=== PATIENT | male | born 1995 | race Caucasian/White ===

== ENCOUNTER 2018-06-22 20:36 | Emergency (ER) | payer OTHER, SELFPAY ==
[2018-06-22 20:37] VITALS: BP 152/80; PULSE 76; RESP 18; TEMP 37; O2SAT 98; BMI 28.3
[2018-06-22] MEDS: Clindamycin HCl 150 MG Capsule 300 MG PO (21:29)
--- NOTE | 2018-06-22 22:08 | ED.DCSUM_ITS ---
- ER Visit Summary Date of Service: 06/22/18 Chief Complaint: Abscess History of Present Illness: The patient is a 22 M who noted a swollen area along the gluteal cleft a few days ago. The area has become increasingly swollen and painful. There is been no spontaneous drainage. He denies fever or chills. Physical Examination: Vital signs significant for blood pressure 152/80, otherwise unremarkable. Patient standing at bedside. He is in no acute distress. Heart is regular rate and rhythm. Lungs sounds are clear. Skin examination reveals a pilonidal cyst with fluctuance along the superior gluteal cleft. Test Results: [] Emergency Department Course and Treatment: Patient was consented for I&D. He is given a dose of clindamycin. 1 cc 1% lidocaine is infused locally. An incision is made with a #11 blade. There is return of pus. Loculations are broken up with curved hemostats. Wound is cleansed and dressed. Patient will be given a prescription for clindamycin. He wishes to only take ibuprofen or Aleve at home for pain. He is referred to surgery for follow-up if it returns. Treatment Plan: [] Disposition: Discharge Impression: Pilonidal cyst status post I&D This note was generated with [employer] dictation software. It may contain incorrect words, spelling, and punctuation that were not noted in review of the chart prior to signing ED Disposition - Plan for ED Patient: Disposition: Home or Assisted Living Instructions: ED Cyst Pilonidal Infected IandD Prescriptions: Clindamycin [Cleocin] 300 mg PO 4X/DAY #80 capsule Referrals: Jeremy Joshi MD [STAFF PHYSICIAN] - As Needed
[2018-06-22 22:10] VITALS: RESP 18
== END 2018-06-22 22:15 | disposition home or self-care (01) ==
PROVIDERS: Emergency Provider Emergency Medicine
DX: L05.01 Pilonidal cyst with abscess (principal)
CPT/HCPCS: 10080; 99283

== ENCOUNTER 2019-10-05 09:34 | Emergency (ER) | payer OTHER, SELFPAY ==
[2019-10-05 09:35] VITALS: BP 176/89; PULSE 87; RESP 17; TEMP 36.3; O2SAT 99; BMI 30.8
--- NOTE | 2019-10-05 09:52 | CT_ITS ---
STUDY: CT BRAIN WITHOUT CONTRAST REASON FOR EXAM: Male, 23 years old. HIT HEAD ON TABLE X2 DAYS AGO RADIATION DOSAGE (If Supplied By Facility): CTDIvol = ( 44.99 ) mGy, DLP = ( 779.24 ) mGycm TECHNIQUE: Transaxial CT imaging of the brain was performed without administration of intravenous contrast material. Individualized dose optimization techniques were used for this CT. COMPARISON: No relevant priors. FINDINGS: Normal soft tissue structures. Normal calvarium. Normal size ventricles and extra-axial spaces for the patient''s age. Normal white matter tracts of the cerebral hemispheres. Normal basal ganglia and thalami. Normal brainstem. Normal cerebellum. There is no intracranial hemorrhage. There are no findings of an acute ischemic infarction. Normal visualized paranasal sinuses. CT/Brain/Head without Contrast IMPRESSION: Normal unenhanced CT scan of the brain. Electronically Signed: Luis Antonio Cox, at 10:19 EDT , Service support ,
--- NOTE | 2019-10-05 10:00 | ED.VIS.GEN ---
History of Present Illness Chief Complaint: Head Injury Narrative: Patient presenting for evaluation after head injury. Patient reports that on Saturday night he was drinking with some friends and was roughhousing. Patient reports that while he was roughhousing he struck his left rastafarian against a table. He is unsure if he lost consciousness, but states that after he got up from the fall he basically blacked out for the rest of the night and did not remember anything else that happened. Patient states that since then he plus or minus has been having some blurred vision. He reports that on Saturday he was using Afrin to clear his nose, and felt as if he had clear drainage and after looking things up on the Internet was concerned that he had CSF rhinorrhea. Patient denies any confusion nausea or vomiting. No personal or family history of bleeding dyscrasias. Past Medical History - Allergies and Home Meds Allergies/Adverse Reactions: Allergies amoxicillin trihydrate [From Augmentin] Allergy (Verified 10/05/19 09:35) Rash potassium clavulanate [From Augmentin] Allergy (Verified 10/05/19 09:35) Rash Primary Care Physician: Care Physician,No Primary [NON-STAFF] - Prior records reviewed: Yes Past Medical History: None Lives: With Family Smoking Status: Never smoker Alcohol: Occasional Review of Systems All systems negative except as indicated General: Denies: Chills, Fever, Sweats Eyes: Reports: Visual changes - bilaterally. Denies: Diplopia ENT: Denies: Rhinorrhea, Sore throat Cardiovascular: Denies: Chest pain, Palpitations Respiratory: Denies: Dyspnea, Cough, Dyspnea on exertion Gastrointestinal: Denies: Abdominal pain, Nausea, Vomiting, Diarrhea, Melena, Hematochezia Genitourinary: Denies: Dysuria, Hematuria, Frequency Musculoskeletal: Denies: Back pain, Extremity Pain Skin: Denies: Rash, Wounds Neurological: Reports: Headache Physical Exam Vital Signs/Narrative: Vital Signs Temp Pulse Resp BP Pulse Ox 10/05/19 09:35 97.3 F L 87 17 176/89 H 99 Inital Vital Signs reviewed: Yes General: Well nourished, Well developed, No Acute Distress Head: Normocephalic, Atraumatic Eyes: Perrl, EOMI ENT: Moist mucous membranes, No rhinorrhea, TM's clear - No evidence of hemotympanum, - - No evidence of gomez sign or raccoon eyes. No evidence of rhinorrhea. Neck: Supple, Nontender Cardiovascular: Regular rate, Regular rhythm, No murmurs Respiratory: No distress, CTA bilaterally, Chest nontender Abdomen: Soft, Nontender, Nondistended, Normal bowel sounds Back: Nontender, Normal Inspection Extremities: Nontender, No edema Skin: Normal color, No rash Neurological: Alert, Oriented x3, Cranial nerves II-XII grossly intact, Normal Strength, Normal Sensation, Normal Gait. Negative for: Confused, Disoriented Psychological: Normal affect, Normal Mood Diagnostic/Tx/Re-eval Clinical Impression(s) from Imaging Studies Brain CT 10/05/19 09:52 IMPRESSION: Normal unenhanced CT scan of the brain. Electronically Signed: Luis Antonio Cox, at 10:19 EDT , Service support , - Medical Decision Making Patient presented secondary to a head injury. Patient had some symptoms of potential loss of consciousness and plus or minus CSF rhinorrhea, so CT imaging was performed. This was found to be negative per radiology. Patient likely has an element of a concussion, he was given return to activity instructions and was discharged in stable condition. I feel that it is unlikely that the patient has a basilar skull fracture causing CSF rhinorrhea. ED Disposition - Plan for ED Patient: Disposition: Home or Assisted Living Diagnosis: Concussion Instructions: ED Concussion Referrals: Care Physician,No Primary [NON-STAFF] - Additional Instructions: Follow-up with your primary care physician as needed
[2019-10-05 11:04] VITALS: PULSE 84; RESP 17; O2SAT 99
== END 2019-10-05 11:05 | disposition home or self-care (01) ==
PROVIDERS: Emergency Provider Emergency Medicine; PCP Internal Medicine
DX: S06.0X9A Concussion with loss of consciousness of unspecified duration, initial encounter (principal); W22.8XXA Striking against or struck by other objects, initial encounter; Y93.72 Activity, wrestling; Y92.9 Unspecified place or not applicable
CPT/HCPCS: 70450; 99282

== ENCOUNTER 2021-05-23 13:56 | Outpatient (CLI) | payer OTHER, SELFPAY ==
[2021-05-23 15:05] LABS: Absolute Lymphocyte Count 1.74 X10^3/uL (0.83-4.51); Absolute Neutrophil Count 3.9 X10^3/uL (2.0-7.7); Basophil# 0.02 X10^3/uL; Basophil% 0.3 % (0-1); Eosinophil# 0.05 X10^3/uL; Eosinophils% 0.8 % (0-5); Hemoglobin 14.8 g/dL (13.0-16.5); Lymphocyte # 1.74 X10^3/ul (0.83-4.51); Lymphocyte % 28.2 % (19-41); Mean Corp Hgb Conc 34.4 g/dL (32-36); Mean Corpuscular Hgb 30.3 pg (27.0-32.0); Mean Corpuscular Volume 87.9 fL (80-94); Mean Platelet Vol. 9.2 fl (6.2-12.0); Monocyte% 8.1 % (0-10); NRBC Flagged by Analyzer 0 % (0-5); Neutrophil # 3.85 X10^3/uL (2.7-7.7); Neutrophil % 62.4 % (47-70); Platelet Count 252 K/mm3 (150-450); RBC Distribution Width CV 12.1 % (11.6-14.6); Red Blood Count 4.89 M/mm3 (4.6-6.2); White Blood Count 6.2 K/mm3 (4.4-11.0)
[2021-05-23 15:19] LABS: ALB/GLOB Ratio 1.2 RATIO (0.9-2.4); AST(SGOT) 15 U/L (15-37); Alanine Aminotransfer ALT/SGPT 25 U/L (16-61); Albumin, Serum 3.8 g/dL (3.2-5.0); Alkaline Phosphatase 58 U/L (45-117); Anion Gap 6 (5-15); BUN 15 mg/dL (7-18); BUN/Creat Ratio 16.8 RATIO (10-20); Chloride 106 mmol/L (98-107); Cholesterol 125 mg/dL (200); Creatinine, Serum 0.89 mg/dL (0.70-1.30); EST Glomerular Filtration Rate 112 mL/min (>60); Est Glom Filt Rate - Afr Amer 135 mL/min (>60); Globulin 3.3 g/dL (2.2-4.2); Glucose 90 mg/dL (74-106); High Density Lipoprotein 58 mg/dL; Potassium 3.8 mmol/L (3.5-5.1); Protein, Total 7.1 g/dL (6.4-8.2); Sodium Level 143 mmol/L (136-145); Triglycerides 68 mg/dL; Very Low Density Lipoprotein 14 mg/dL (5-40)
== END 2021-05-23 23:59 | disposition short-term general hospital (02) ==
LOC: BIMLAB 13:58
PROVIDERS: PCP Internal Medicine; Referring Provider Internal Medicine; Visit Provider Internal Medicine
DX: I10 Essential (primary) hypertension (principal)
CPT/HCPCS: 36415; 80053; 80061; 85025

== ENCOUNTER 2022-06-26 07:26 | Emergency (ER) | payer OTHER, SELFPAY ==
[2022-06-26 07:28] VITALS: BP 124/78; PULSE 78; RESP 16; TEMP 36.6; O2SAT 98
--- NOTE | 2022-06-26 07:41 | RAD_ITS ---
STUDY: X-RAY - CERVICAL SPINE REASON FOR EXAM: Male, 26 years old. 2 month history of right-sided neck pain. TECHNIQUE: 3 view(s) of the cervical spine were obtained. COMPARISON: None FINDINGS: Normal anterior atlantoaxial articulation. Normal odontoid process. There is straightening of the normal cervical lordosis. Normal vertebral bodies and endplates. Normal disc space heights. Normal visualized intervertebral neuroforamina. The soft tissue structures are unremarkable. RAD/Cerv Spine 2 or 3 Views IMPRESSION: Straightening of the normal cervical lordosis. Electronically Signed: Luis Antonio Cox MD at 8:45 EST ,
--- NOTE | 2022-06-26 07:41 | RAD_ITS ---
STUDY: X-RAY CHEST REASON FOR EXAM: Male, 26 years old. 2 month history of right shoulder pain. Work injury. TECHNIQUE: PA and lateral views of the chest. COMPARISON: None. FINDINGS: The lungs are clear and expanded. There is no demonstrated pleural abnormality. Normal size heart. Normal mediastinum and willy. Normal visualized pulmonary arteries. Normal visualized aortic arch and descending thoracic aorta. There is a dextroscoliosis of the thoracic spine. Normal visualized ribs, clavicles, and shoulders. There is no demonstrated abnormality of the visualized soft tissue structures of the upper abdomen. RAD/Chest PA and Lateral IMPRESSION: Dextroscoliosis. Electronically Signed: Luis Antonio Cox MD at 8:44 EST ,
--- NOTE | 2022-06-26 07:43 | EDS_ITS ---
HPI History of Present Illness Chief Complaint: Other, Pain/Inj Detail of Chief Complaint: Right upper back pain Informant: patient Narrative Narrative: Patient presents secondary to right upper back pain. 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 He had tightness in that area with some radiation towards his neck. Over the last 2 months with anti- inflammatories symptoms seem to improve. He was at the gym yesterday. When punching a punching bag he felt that same popping sensation. This morning he woke up and has neck stiffness and difficulty moving. Pain does not radiate down his arm. He has no paresthesias. [facility] Medical History Dermatitis Groin swelling Hypertension Migraines Pain in toe of left foot Home Medications hydrocortisone 2.5 % topical cream 1 applic topical BID PRN rash #30 grams 05/23/21 [Rx Last Taken Unknown] miconazole nitrate 2 % topical spray powder 1 spray topical BID #133 grams 05/23/21 [Rx Last Taken Unknown] cyclobenzaprine 10 mg tablet 10 mg PO TID PRN Muscle Spasm #20 TABLETS 06/26/22 [Rx Last Taken Unknown] naproxen 500 mg tablet (Naprosyn) 500 mg PO BID PRN pain #20 tabs 06/26/22 [Rx Last Taken Unknown] Allergy/AdvReac Type Severity Reaction Status Date / Time amoxicillin trihydrate Allergy Rash Verified 06/26/22 07:27 [From Augmentin] potassium clavulanate Allergy Rash Verified 06/26/22 07:27 [From Augmentin] Family History Grandfather Myocardial infarction, Onset Age: 40 Diabetes Heart disease Surgical History no surgical history Social History Smoking Status: Current every day smoker tobacco type: e-cigarettes Electronic Cigarette Use: with nicotine alcohol intake: never substance use type: does not use what type of physical activity do you participate in: running and weight training frequency: daily ROS ROS ED Constitutional Constitutional ED: Denies chills or fever(s) Eyes Eyes: Denies change in vision or discharge from eye(s) ENT ENT ED: Denies discharge from eye(s), rhinorrhea or sore throat Cardiovascular Cardiovascular: Denies chest pain or palpitations Respiratory/Chest Respiratory/Chest: Denies cough or dyspnea Gastrointestinal Gastrointestinal: Denies abdominal pain, nausea or vomiting Genitourinary Genitourinary ED: Denies difficulty urinating or dysuria Musculoskeletal Musculoskeletal: Reports back pain, extremity pain and neck pain Integumentary Denies Abrasions or rash Neurologic Neurologic: Denies headache(s) or weakness Allergic/Immunologic Allergic/Immunologic ED: Denies lip swelling or urticaria EXAM Physical Exam Const Vital Signs: 06/26/22 07:28 Temperature 97.8 F Temperature Source Temporal Pulse Rate 78 Respiratory Rate 16 Blood Pressure 124/78 H Blood Pressure Mean 93 Pulse Ox 98 Oxygen Delivery Method Room Air Positive well nourished and well developed General Appearance ED: well developed HEENT Reports normocephalic and head/scalp atraumatic Eyes PERRL and EOMs intact bilaterally Neck supple Chest Wall inspection of chest normal and palpation of chest normal Resp normal respiratory effort and clear to auscultation bilaterally Cardio regular rate and regular rhythm GI non-tender Auscultation: hypoactive bowel sounds Palpation: soft Back/Spine Back/Spine Narrative: Reproducible tenderness in the right upper thoracic paraspinal muscles and in the trapezius muscles. No bony tenderness. No midline cervical tenderness. Extremity normal to inspection Neuro oriented x3 and no sensory deficits noted Neuro Narrative: Decreased range of motion right shoulder secondary to pain. Sensorium / Orientation: alert Psych mental status grossly normal Skin no rashes or lesions noted MDM MDM MDM Narrative Medical decision making narrative: Patient was sent for cervical spine x-rays along with two-view chest x-ray. He was given Naprosyn and Flexeril. Radiography Diagnostic Testing: Clinical Impression(s) from Imaging Studies Cervical Spine X-Ray 06/26/22 07:41 IMPRESSION: Straightening of the normal cervical lordosis. Electronically Signed: Luis Antonio Cox MD at 8:45 EST , Chest X-Ray 06/26/22 07:41 IMPRESSION: Dextroscoliosis. Electronically Signed: Luis Antonio Cox MD at 8:44 EST , Treatment and Re-Evaluation Narrative: 2 view chest x-ray per my interpretation reveals scoliosis but no other acute findings. Cervical spine x-rays are unremarkable. Radiology interpretation is reviewed on both studies. Radiology does feel there is some straightening of the normal cervical lordosis consistent with muscle spasm. This aligns with the patient's physical exam and history. Patient will be treated with Naprosyn and Flexeril. He is written off work today and work restrictions provided. Discharge Plan Triage Chief Complaint: Other, Pain/Inj ED Provider: Lizeth Mckeon Dx/Rx/DC Orders Clinical Impression: Strain of right trapezius muscle, Muscle spasm Instructions: ED Back Sprain/Strain, ED Muscle Spasm Prescriptions: New naproxen [Naprosyn] 500 mg tablet 500 mg PO BID PRN (Reason: pain) Qty: 20 0RF cyclobenzaprine 10 mg tablet 10 mg PO TID PRN (Reason: Muscle Spasm) Qty: 20 0RF No Action miconazole nitrate 2 % aerosol powder 1 spray topical BID Qty: 133 2RF hydrocortisone 2.5 % cream 1 applic topical BID PRN (Reason: rash) Qty: 30 1RF Stand Alone Forms: Work Status Form Primary Care Provider: Mike Minaya Referrals: [facility] [Group of Physicians] - 3-5 Days Mike Minaya MD [Primary Care Provider] - Disposition Disposition: Home, Self Care
[2022-06-26] MEDS: cycloBENZAPRine HCl 10 MG Tablet PO (08:03)
[2022-06-26] MEDS: Naproxen 500 MG Tablet PO (08:03)
== END 2022-06-26 09:29 | disposition home or self-care (01) ==
PROVIDERS: Emergency Provider Emergency Medicine; PCP Internal Medicine; Visit Provider Emergency Medicine
DX: S29.012A Strain of muscle and tendon of back wall of thorax, initial encounter (principal); M43.6 Torticollis; M62.830 Muscle spasm of back; I10 Essential (primary) hypertension; F17.290 Nicotine dependence, other tobacco product, uncomplicated
CPT/HCPCS: 71046; 72040; 99283

== ENCOUNTER 2022-08-15 08:00 | Outpatient (RCR) | payer OTHER, SELFPAY ==
--- NOTE | 2022-07-05 11:52 | HP.PTEVAL ---
Patient's Visit Information BENNIE GALLOWAY is a 26 year old M referred to Physical Therapy by Dr. Mike Virk MD with a diagnosis of DORSALGIA AND R ARM STRAIN. Date of Evaluation: 07/04/22 Physical Therapist: Ethel Hyde PT, Cert MDT - Visit Plan Frequency: 2-3x /Week Duration: 4-6 Weeks Plan: TEST CERVICAL TRACTION/DISTRACTION. POSTURE CORRECTION/STRENGTHENING, INSTRUCTION IN APPROPRIATE BODY MECHANICS AND ACTIVITY MODIFICATIONS. SRINI UE ROM, STRETCHING AND STRENGTHENING. HEP INSTRUCTION. MODALITIES NEEDED. 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 CURRENTLY OFF WORK FOR THIS VIA DR. VIRK. TENTATIVE RTW DATE UNKNOWN. CONTACT [employer] OPERATOR HELPER FOR ONE WEEKEND A MONTH AND 2-4 WKS IN THE SUMMER. Disability: NO. Present symptoms: R NECK/SHLD BLADE/UPPER BACK PAIN. DENIES ANY OTHER UE SX'S. Present since: APROX 3 MONTHS. Pain Scale: Worst - 6/10 Least - 4/10. Currently: 08/13. 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 He had tightness in that area with some radiation towards his neck. He was at the gym 06/25/22 when punching a punching bag he felt that same popping sensation. Next morning he woke up and has neck stiffness and difficulty moving neck. Worse: putting shirt/sweatshirt on, any position in lying other than flat on back, turning head right and left, looking down, looking up, sitting at computer, trying to ride motorcycle - can't. Better: medication but hasn't taken it for the past few days due to wanting to see how he does without it. warm showers. looking straight ahead. Disturbed sleep: yes. Previous history/Previous treatment: PHYSICAL THERPAY 2013 AGE 17 FOR R NECK PAIN S/P FOOTBALL INJURY - NEVER COMPLETELY RESOLVED. This episode: Naprosyn and Flexeril. Dizziness: no. Tinnitis: no. Nausea: no. Shortness of Breath: no. Difficulty Swollowing: no. Gait: PACE AND DISTANCE LIMITED DUE TO NECK PAIN. Accidents: NO. Unexplained weight loss: NO. Imaging: RECENT NECK X-RAY 06/26/22: IMPRESSION: Straightening of the normal cervical lordosis. . PMH/Recent major surgery: UNREMARKABLE. - Objective Sitting Posture/Standing Posture: FAIR. FH. RSH'S. NO TORTICOLLIS. Other Observations: INDEP GAIT AND TRANSFERS. Sensory deficit: SRINI UE LIGHT TOUCH SENSATION GROSSLY INTACT AND SYMMETRICAL. ROM deficit: SRINI UE ROM WFL BUT C/O RIGHT UT AREA PAIN AT THE END OF THE AVAILABLE R SHLD ALL PLANES. Motor deficit: SRINI UE STRENGTH GROSSLY 5/5 WITH MMT'ING. RIGHT HAND DOMINANT WITH A R QUALITY SYSTEMS MANAGER STRENGTH OF 60 LBS AND LEFT 100 LBS. Reflexes: SRINI UE DTR'S 2/3. Dural Signs: POSITIVE RIGHT UE. Cervical Mvmt Loss: Flex: MIN. Pro: NIL. Ext: MIN. Ret: MIN. RSB: MOD. LSB: MIN. R Rot: MIN. L Rot: MIN. PATIENT C/O INCREASED R NECK AND SHLD BLADE PAIN WITH CERVICAL ROM TESTING ALL PLANES. Postural strength: FAIR. Palpation: RIGHT UPPER TRAP TENDERNESS. TREATMENT: NEUROMUSCULAR REEDUCATION - RETRAINING OF MVMT AND POSTURE FOR SITTING, LYING AND STANDING ACTIVITIES. - Balance/Special Test Scores Oswestry Neck Score: 15 - Goals Goal 1:: DECREASE C/O NECK, UPPER BACK AND R UE SX'S. Goal Time Frame: 4-6 Weeks Goal 2:: IMPROVE PERSONAL CARE, LIFTING, READING, SLEEP, WORK, DRIVING AND RECREATIONAL FUNCTION Goal Time Frame: 4-6 Weeks Goal 3:: INSTRUCT IN PROPHYLAXIS Goal Time Frame: 4-6 Weeks - Anticipated Interventions Patient/Client Instruction: Educate patient on: Condition, Plan of Care, Risk Factors For the Purpose of:: To improve self management Therapeutic Exercise to Include: Strength training, Body mechanics, Postural training, Flexibilty training, Neuromotor development, Scapular Strength/Stabilization For the Purpose of:: To decrease pain, To increase ROM, To improve muscle performance and motor function, To increase tolerance to activity/condition/position, To improve ability of physical actions for home/community/work/leisure TENS: Yes IF ES: Yes Cryotherapy (ice pack, ice massage): Yes Thermo therapy (hot pack): Yes Ultrasound (thermal/non thermal): Yes For the Purpose of:: To decrease pain, To improve nutrient delivery to tissue Thank you for the opportunity to evaluate your patient. For Medicare and Medicare HMO plans, please review the plan of care and approve it. It will need to be FAXED BACK to us at [phone] for Medicare purposes. For Medicare only, by signing this I certify the plan of care. Please let me know if there are questions or concerns regarding this plan of care. Physician Signature: Date:
--- NOTE | 2022-08-03 13:07 | HP.PTREVAL ---
Dr. Mike Virk MD, It has been my pleasure to treat BENNIE GALLOWAY over the last 8 visits for DORSALGIA AND R ARM STRAIN. Please see the progress note below for an update on the physical therapy plan of care! Subjective: PATIENT REPORTS HIS PAIN IS INTERMITTENT NOW. R NECK PAIN RANGING 0-3/10. GETTING BETTER. DOING HEP. FEELS READY TO GO BACK TO WORK AND STATES HE GOT A WORK RELEASE FROM DR. VIRK. WANTS TO CONTINUE PT TO SEE IF HE CAN COMPLETELY GET RID OF THE PAIN AND BECAUSE TRACTION IS HELPING. Objective/Function: PATIENT WAS SEEN TODAY FOR RE-ASSESSMENT OF PROGRESS TOWARD THE SET PT GOALS AND THE NEED FOR FURTHER PHYSICAL THERAPY VS READINESS FOR DISCHARGE. PATIENT IS MAKING GOOD PROGRESS TOWARD ALL PT GOALS WITH TX AND EX. HE IS A GOOD CANDIDATE TO CONTINUE PT BASED ON PROGRESS MADE AND ROOM FOR FURHTER IMRPOVEMENT. PATIENT IS AGREEABLE. 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 CERVICAL ROM WFL ALL PLANES BUT C/O MILD PAIN WITH R ROTATION TESTING. SRINI UE ROM AND STRENGTH WFL. Plan Plan: CONTINUE PT 2X'S A WK X 3-4 WKS. POSTURE CORRECTION/STRENGTHENING, INSTRUCTION IN APPROPRIATE BODY MECHANICS AND ACTIVITY MODIFICATIONS. SRINI UE ROM, STRETCHING AND STRENGTHENING. HEP INSTRUCTION. MODALITIES NEEDED. Balance/Gait/Functional tests - Balance/Special Test Scores Oswestry Neck Score: 4 Goals Goal 1:: DECREASE C/O NECK, UPPER BACK AND R UE SX'S. Goal Time Frame: 4-6 Weeks Goal Progress: Progressing Goal 2:: IMPROVE PERSONAL CARE, LIFTING, READING, SLEEP, WORK, DRIVING AND RECREATIONAL FUNCTION Goal Time Frame: 4-6 Weeks Goal Progress: Progressing Goal 3:: INSTRUCT IN PROPHYLAXIS Goal Time Frame: 4-6 Weeks Goal Progress: Progressing Anticipated Interventions Patient/Client Instruction: Educate patient on: Condition, Plan of Care, Risk Factors For the Purpose of:: To improve self management Therapeutic Exercise to Include: Strength training, Body mechanics, Postural training, Flexibilty training, Neuromotor development, Scapular Strength/Stabilization For the Purpose of:: To decrease pain, To increase ROM, To improve muscle performance and motor function, To increase tolerance to activity/condition/position, To improve ability of physical actions for home/community/work/leisure TENS: Yes IF ES: Yes Cryotherapy (ice pack, ice massage): Yes Thermo therapy (hot pack): Yes Ultrasound (thermal/non thermal): Yes For the Purpose of:: To decrease pain, To improve nutrient delivery to tissue Please do not hesitate to contact me at [phone] by phone or if you have questions or concerns regarding this new plan of care! Sincerely, Ethel Hyde, PT, Cert MDT
--- NOTE | 2022-10-29 18:57 | HP.PTDCNRP_ITS ---
BENNIE GALLOWAY was seen in my office for initial evaluation on 07/04/22. The following Plan of Care was established for this patient: Initial Frequency: 2-3x /Week Initial Duration: 4-6 Weeks Patient/Client Instruction: Educate patient on: Condition, Plan of Care, Risk Factors For the Purpose of:: To improve self management Therapeutic Exercise to Include: Strength training, Body mechanics, Postural training, Flexibilty training, Neuromotor development, Scapular Strength/Stabilization For the Purpose of:: To decrease pain, To increase ROM, To improve muscle performance and motor function, To increase tolerance to activi ty/condition/position, To improve ability of physical actions for home/community/work/leisure TENS: Yes IF ES: Yes Cryotherapy (ice pack, ice massage): Yes Thermo therapy (hot pack): Yes Ultrasound (thermal/non thermal): Yes For the Purpose of:: To decrease pain, To improve nutrient delivery to tissue This patient was last seen in our office 08/15/22. Pertinent comments regarding their Physical therapy will appear below: This patient has not returned to Physical Therapy and is appropriate to return to MD for further follow-up as needed. At this point I will be discontinuing this patient from physical therapy. I would be happy to see this patient again in the future if found appropriate by the physician. Thank you! Ethel Hyde, PT, Cert MDT Balance/Gait/Functional tests - Balance/Special Test Scores Oswestry Neck Score: 4
== END 2022-08-15 19:00 | disposition home or self-care (01) ==
LOC: PT 08:00
PROVIDERS: PCP Internal Medicine; Visit Provider Internal Medicine
DX: M54.9 Dorsalgia, unspecified (principal); S46.811A Strain of other muscles, fascia and tendons at shoulder and upper arm level, right arm, initial encounter; M62.838 Other muscle spasm
CPT/HCPCS: 97012; 97035; 97112; 97140; 97162; 97164; 97530

== ENCOUNTER 2024-12-25 18:46 | Emergency (ER) | payer OTHER, SELFPAY ==
[2024-12-25 18:48] VITALS: BP 131/90; PULSE 69; RESP 14; TEMP 36.6; O2SAT 99; BMI 28.6
[2024-12-25 20:07] LABS: Hematocrit 44.0 % (40-54); Hemoglobin 15.2 g/dL (13.0-16.5); Immature Granulocytes Count 0.010 X10^3/uL (0.0-0.0); Mean Corp Hgb Conc 34.5 g/dL (32-36); Mean Corpuscular Volume 85.9 fL (80-94); Mean Platelet Vol. 9.2 fl (6.2-12.0); NRBC Flagged by Analyzer 0 % (0-5); Platelet Count 223 K/mm3 (150-450); RBC Distribution Width CV 12.2 % (11.6-14.6); RBC Distribution Width SD 38.3 fl (35.1-43.9); Red Blood Count 5.12 M/mm3 (4.6-6.2); White Blood Count 6.4 K/mm3 (4.4-11.0)
[2024-12-25 20:34] LABS: AST(SGOT) 29 U/L (<=37); Alanine Aminotransfer ALT/SGPT 35 U/L (<=46); Albumin, Serum 4.8 g/dL (3.5-5.0); Alkaline Phosphatase 64 U/L (40-129); Anion Gap 12 (5-15); BUN 18 mg/dL (4-19); BUN/Creat Ratio 19.0 RATIO (10-20); Calcium,Total 9.6 mg/dL (7.6-11.0); Carbon Dioxide 27.2 mmol/L (21.0-32.0); Chloride 102 mmol/L (98-108); Estimated Creatinine Clearance 153.25 ml/min (50-250); Globulin 2.7 g/dL (2.2-4.2); Glucose 83 mg/dL (70-99); Lipase 22 U/L (13-75); Potassium 3.8 mmol/L (3.3-5.1)
--- NOTE | 2024-12-25 20:37 | EX.ED.DYSGE1 ---
HPI History of Present Illness Chief Complaint: Abd Pain Informant: patient Narrative Narrative: Pain bilateral scrotum throughout the day. Yesterday doing some heavy lifting. Denies direct trauma to his scrotum. Denies any bulging. Bowel movement yesterday. No history of similar. Sickly active single partner. He had STD years ago. No penile discharge, no dysuria. Allergies to Augmentin. Prior similar symptoms: No PFSH PFSH Medical History Back pain Dermatitis Groin swelling Hypertension Pain in toe of left foot Migraines Home Medications ?Medication ?Instructions ?Recorded ?Last Taken ?Type hydrocortisone 2.5 % topical cream 1 applic topical BID PRN rash #30 05/23/21 Unknown Rx grams cyclobenzaprine 10 mg tablet 10 mg PO TID PRN Muscle Spasm #20 06/26/22 Unknown Rx TABLETS naproxen 500 mg tablet (Naprosyn) 500 mg PO BID PRN pain #20 tabs 06/26/22 Unknown Rx hydrocodone-acetaminophen 5-325mg 1 tab PO Q6H PRN PRN Pain 3 days 12/25/24 Unknown Rx 5mg-325mg #10 TABLETS ibuprofen 600 mg tablet 600 mg PO Q6H PRN PRN pain #20 12/25/24 Unknown Rx TABLETS Allergy/AdvReac Type Severity Reaction Status Date / Time amoxicillin trihydrate (From Allergy Rash Verified 12/25/24 18:50 Augmentin) potassium clavulanate (From Allergy Rash Verified 12/25/24 18:50 Augmentin) Family History Grandfather Myocardial infarction, Onset Age: 40 Diabetes Heart disease Social History Smoking Status: Current every day smoker tobacco type: e-cigarettes Electronic Cigarette Use: with nicotine alcohol intake: never substance use type: does not use what type of physical activity do you participate in: running and weight training frequency: daily ROS ROS ED Constitutional Constitutional ED: Denies fever(s) Cardiovascular Cardiovascular: Denies chest pain Respiratory/Chest Respiratory/Chest: Denies cough Gastrointestinal Gastrointestinal: Denies diarrhea or vomiting Genitourinary Genitourinary ED: Reports other Details: Scrotal pain. No penile discharge. ; Denies dysuria Musculoskeletal Musculoskeletal: Denies none Integumentary Denies rash or wounds Neurologic Neurologic: Denies weakness EXAM Physical Exam Const Vital Signs: 12/25/24 18:48 12/25/24 20:47 12/25/24 22:00 Temperature 98 F Temperature Source Oral Pulse Rate 69 80 80 Respiratory Rate 14 Blood Pressure 131/90 H 101/88 H 112/80 Blood Pressure Mean 103 92 90 Pulse Ox 99 100 100 Oxygen Delivery Method Room Air 12/25/24 22:15 Temperature 98.3 F Temperature Source Pulse Rate 80 Respiratory Rate 18 Blood Pressure 112/80 Blood Pressure Mean 90 Pulse Ox 100 Oxygen Delivery Method Positive well nourished and well developed General Appearance ED: well developed HEENT normocephalic and atraumatic Eyes General Eye ED: Yes normal appearance of both eyes Neck full ROM Resp normal respiratory effort and normal air movement Cardio regular rate and regular rhythm GI soft to palpation Narrative: Nursing present for basic sciences professor. No scrotal swelling bilateral epididymal tenderness. No ulceration no penile discharge. No inguinal hernias palpated bilaterally. Extremity normal to inspection and full ROM Neuro oriented x3 Skin no rashes or lesions noted and no wounds MDM MDM MDM Narrative Medical decision making narrative: Interventions / MDM: Differential diagnosis: Epididymitis. Diagnosis considered but do not suspect: No clinical torsion. No inguinal hernias. My EKG interpretation: N/A Imaging independently reviewed and interpreted by myself: N/A External documents reviewed: N/A Test considered but not ordered:N/A ED course: Patient evaluated scrotal pain with heavy activity yesterday. Clinical epididymitis. No hernias palpated. IVs are established by nursing labs are sent will check urine will screen for GC chlamydia. Low risk for this with single partner. IV Toradol ordered. Still pain ice was placed additional [place] was written. Urine negative for infection labs are stable. GC chlamydia was pending. Discussed scrotal support. Written for pain medicines. Outpatient follow-up with urology. All questions were answered. 0115: Review of his GC chlamydia results were negative. Re-evaluation: stable Disposition discussed with patient/family/significant other: Patient and significant other Case discussed with consulting clinician: N/A This note was generated with [employer] dictation software. It may contain incorrect words, spelling, and punctuation that were not noted in checking the note before signing. Lab Data Attestation: I reviewed the patient's lab results. Labs: Laboratory Results - last 24 hr 12/25/24 12/25/24 19:30 20:40 WBC 6.4 RBC 5.12 Hgb 15.2 Hct 44.0 MCV 85.9 MCH 29.7 MCHC 34.5 RDW Std Deviation 38.3 RDW Coeff of [place] 12.2 Plt Count 223 MPV 9.2 Immature Gran % (Auto) 0.200 Neut % (Auto) 51.4 Lymph % (Auto) 35.5 [place] % (Auto) 10.7 H Eos % (Auto) 1.9 Baso % (Auto) 0.3 Absolute Neuts (auto) 3.3 Absolute Lymphs (auto) 2.26 Nucleated RBC % 0 Sodium 141 Potassium 3.8 Chloride 102 Carbon Dioxide 27.2 Anion Gap 12 BUN 18 Creatinine 0.92 Estim Creat Clear Calc 153.25 Est GFR (MDRD) Non-Af 117 BUN/Creatinine Ratio 19.0 Glucose 83 Calcium 9.6 Total Bilirubin 0.46 AST 29 ALT 35 Alkaline Phosphatase 64 Total Protein 7.4 Albumin 4.8 Globulin 2.7 Albumin/Globulin Ratio 1.8 Lipase 22 Urine Color Yellow Urine Clarity Sl. Cloudy Urine pH 6.0 Ur Specific [place] 1.025 Urine Protein 30 H Urine Glucose (UA) Normal Urine Ketones Negative Urine Occult Blood Negative Urine Nitrite Negative Urine Bilirubin 1 H Urine Urobilinogen 1 H Ur Leukocyte Esterase Negative Urine RBC 0 SEEN Urine WBC 0-5 SEEN Ur Squamous Epith Cells 0-5 SEEN Urine Bacteria 2+ Hyaline Casts 10-25 SEEN Urine Mucus 3+ Discharge Plan Triage Chief Complaint: Abd Pain ED Provider: Toro Finnegan Dx/Rx/DC Orders Clinical Impression: Epididymitis, bilateral Instructions: ED Epididymitis Prescriptions: New hydrocodone-acetaminophen 5-325 mg tablet 1 tab PO Q6H PRN PRN (Reason: Pain) 3 Days Qty: 10 0RF ibuprofen 600 mg tablet 600 mg PO Q6H PRN PRN (Reason: pain) Qty: 20 0RF No Action hydrocortisone 2.5 % cream 1 applic topical BID PRN (Reason: rash) Qty: 30 1RF naproxen [Naprosyn] 500 mg tablet 500 mg PO BID PRN (Reason: pain) Qty: 20 0RF cyclobenzaprine 10 mg tablet 10 mg PO TID PRN (Reason: Muscle Spasm) Qty: 20 0RF Stand Alone Forms: ED Work / School Excuse Primary Care Provider: Mike Minaya Referrals: Mike Minaya MD [Primary Care Provider] - Michael Rome MD [Med Staff - Active Staff] - 1-2 Weeks Activity Restrictions/Additional Instructions: Urinary for infection. Labs are stable. STD screening still pending, if positive we will let you know for treatment. Print Language: [place]er Disposition Disposition: Home, Self Care Discharge Date/Time: 12/25/24 22:16
[2024-12-25] MEDS: HYDROcodone Bitartrate/Apap 5/325 Tablet PO (20:44)
[2024-12-25 20:45] LABS: Red Blood Cells-Urine 0 SEEN /hpf (0-5)
--- OUTSIDE RECORDS SUMMARY | 2024-12-25 20:46 | XMS RPT_ITS | CCD ---
Author Organization [facility] Care Team Providers Care Referral Management Liaison Name Role Phone Marcelo MAC-Fabiola, Jaren Long Unavailable Unavailable [facility] AGENCY APPOINTMENTS SUPERVISOR, Angela N Unavailable [phone] PHYSICIAN, PATIENT UNSURE Unavailable MONICA Beasley Unavailable Unavailable PHYSICIAN, NONE Unavailable Unavailable [facility] AGENCY APPOINTMENTS SUPERVISOR, Angela N Unavailable Dr. Mike Minyaa Primary Care Provider Dr. Mike Minaya Attending Provider [phone] Dr. Mike Minaya Referring Provider [phone] Oleaung, Efewongbe Attending Unavailable Oleghe, Efewongbe Primary Care Unavailable Oleghe, Efewongbe Referring Unavailable Oleghe Efewongbe Attending Unavailable Oleghe, Efewongbe Primary Care Unavailable Oleghe, Efewongbe Primary Care Unavailable Lizeth Mckeon Attending Unavailable Oleghe, Efewongbe Attending Unavailable Oleghe, Efewongbe Primary Care Unavailable Oleghe, Efewongbe Referring Unavailable Keena Lucio MD Primary Care Provider KEENA LUCIO Primary Care Unavailable Allergies Allergy Classification Reported Allergen(s) Allergy Type Date of Onset Reaction(s) Facility (3 sources) Amoxicillin; Translations: [amoxicillin trihydrate] Drug Allergy 06-26-2022 [facility] (3 sources) potassium clavulanate; Translations: [potassium clavulanate] Allergy to substance 06-26-2022 [facility] (3 sources) Amoxicillin / Clavulanate; Translations: [AMOXICILLIN-POT CLAVULANATE] Drug Allergy 2012 Diarrhea [facility] Work Phone: Medications Current Medications Medication Drug Class(es) Dates Sig (Normalized) Sig (Original) cyclobenzaprine hydrochloride 10 mg oral tablet (2 sources) Muscle Relaxant Start: 06-26-2022 take 10 mg by mouth three times daily Cyclobenzaprine Active 10 MG PO THREE TIMES A DAY June 26, 2022 1:00am doxycycline monohydrate 100 mg oral capsule (1 source) Tetracycline-class Drug Start: 06-25-2024 End: 07-02-2024 take 1 capsule by mouth twice daily doxycycline monohydrate (MONODOX) 100 mg capsule Take 1 capsule by mouth two times a day for 7 days. 14 capsule 06/25/2024 07/02/2024 Active hydrocortisone 25 mg/ml topical cream (2 sources) Corticosteroid Start: 05-23-2021 Hydrocortisone Active 1 APPLIC TOPICAL TWICE A DAY May 23, 2021 1:00am naproxen 500 mg oral tablet (2 sources) Nonsteroidal Anti-inflammatory Drug Start: 06-26-2022 take 1 tablet by mouth twice daily Naproxen (Naprosyn) 500 mg tablet Active 500 MG PO TWICE A DAY June 26, 2022 1:00am Completed/Discontinued Medications Medication Drug Class(es) Dates Sig (Normalized) Sig (Original) azithromycin 250 mg oral tablet (8 sources) Macrolide Antimicrobial Start: 07-23-2017 End: 07-28-2017 Azithromycin Discontinued 250 MG PO daily 6 July 23, 2017 12:00am July 28, 2017 12:06am Take 2 tabs once on day one then take one tablet once daily for the next 4 days. Start: 10-06-2016 take 4 tablets by mouth once A ZITHROMYCIN 250 MG TABS take 4 tablets by mouth once AZITHROMYCIN [id number] Jaren Robertson [employer] miconazole nitrate 0.02 mg/mg powder spray (2 sources) Azole Antifungal Start: 05-23-2021 End: 06-28-2022 apply 1 spray(s) topically twice daily Miconazole Nitrate Discontinued 1 SPRAY TOPICAL TWICE A DAY May 23, 2021 1:00am June 28, 2022 3:42pm POLYETHYLENE GLYCOL 3350 (1 source) Osmotic Laxative Start: 10-09-2010 MIRALAX POWD POLYETHYLENE GLYCOL 3350 [id number] Reena Fitzpatricker POLYETHYLENE GLYCOL 3350 (5 sources) Start: 10-09-2010 MIRALAX POWD POLYETHYLENE GLYCOL 3350 [id number] Reena Fitzpatrickjesse Problems Active Problems Problem Classification Problem Date Documented Da te Episodic/Chronic Allergic reactions (2 sources) Inflammatory dermatosis; Translations: [Dermatitis, unspecified] 05-23-2021 Episodic Essential hypertension (3 sources) Hypertensive disorder; Translations: [Essential (primary) hypertension] 05-23-2021 Chronic Genitourinary symptoms and ill-defined conditions (7 sources) Dysuria; Translations: [Painful micturition, unspecified] Onset: 10-06-2016 10-06-2016 Episodic Headache; including migraine (2 sources) Migraine; Translations: [Migraine, unspecified, not intractable, without status migrainosus] 10-21-2017 Chronic Immunizations and screening for infectious disease (1 source) Patient encounter status; Translations: [Encounter for screening for infections with a predominantly sexual mode of transmission] 06-24-2024 Episodic Intracranial injury (2 sources) Concussion injury of body structure; Translations: [Concussion] 10-06-2019 Episodic Other connective tissue disease (2 sources) Pain in toe; Translations: [Pain in left toe(s)] 12-11-2020 Episodic Other connective tissue disease (2 sources) Spasm; Translations: [Other muscle spasm] 06-26-2022 Episodic Other gastrointestinal disorders (2 sources) Swelling of inguinal region; Translations: [Other intra-abdominal and pelvic swelling, mass and lump] 05-23-2021 Episodic Other upper respiratory infections (8 sources) Acute sinusitis; Translations: [Acute upper respiratory infection] Onset: 06-21-2016 06-26-2016 Episodic Spondylosis; intervertebral disc disorders; other back problems (3 sources) Backache; Translations: [Dorsalgia, unspecified] Onset: 08-22-2022 08-08-2022 Episodic Sprains and strains (2 sources) Strain of trapezius muscle; Translations: [Strain of other muscles, fascia and tendons at shoulder and upper arm level, right arm, initial encounter] 06-26-2022 Episodic Past or Other Problems Problem Classification Problem Date Documented Da te Episodic/Chronic Other gastrointestinal disorders (2 sources) Constipation; Translations: [Constipation] Onset: 12-29-2001 Resolved: 12-24-2002 11-14-2023 Episodic Other lower respiratory disease (6 sources) Cough; Translations: [Cough] Onset: 06-26-2016 06-26-2016 Episodic Residual codes; unclassified (6 sources) High risk sexual behavior; Translations: [Other problems related to lifestyle] Onset: 10-06-2016 10-06-2016 Episodic Results Test Name Value Interpretation Reference Range Facility Bacteria Ur Culton Bacteria identified Cx Nom (U) CULTURE, URINE: No growth (<1,000 CFU/ml) Normal [facility] Comment on above: Performed By: #### 6 30-4 #### [facility] CLIA [id number] [address] [place] [address] [place] C. trachomatis+N. gonorrhoea e DNA ELDER+probe Ql (Unsp spec)on 06-24-2024 C. trachomatis rRNA ELDER+probe Ql (Unsp spec) Detected Abnormal Not detected [facility] Comment on above: Order Comment: Speci men Type: URINE SPECIMEN Ordering Facility: [facility] Address: [address] [place] [address] Performed By: #### T RVAMP, 09983-4 #### [facility] CLIA [id number] [address] [place] [address] OF [place] N. gonorrhoeae rRNA ELDER+probe Ql (Unsp spec) Not detected Normal Not detected [facility] Comment on above: Order Comment: Speci men Type: URINE SPECIMEN Ordering Facility: [facility] Address: [address] [place] [address] Performed By: #### T RVAMP, 20317-9 #### [facility] CLIA [id number] [address] [place] [address] [place] CNOVon 06-24-2024 CNOV Office Visit (UCWSTR) BENNIE GARCIA ([id number]) 1995 M Date Time Provider Department 06/24/24 1:45 PM PALOMA FLORES [facility] During your visit today, we recorded the following information about you: Temperature Pulse Respiration Blood pressure 96.9 degrees 70/minute 16/minute 118/66 Weight 104.6 kg Paloma Flores PA 06/24/2024 1:08 PM Signed This note was created using OKKAM. Subjective Bennie Garcia is a 28 year old male. HPI 28-year-old male presents for dysuria, penile discharge times a few days. Patient states he has having white penile discharge in the morning. He has a little bit of dysuria. No hematuria. No abdominal pain, testicular pain, back pain, fevers or vomiting. He states he had unprotected sex 3 weeks ago. No known exposure to any specific STD. States he had an STD in high school and this feels similar. He denies any rashes or lesions. No other complaint. PAST MEDICAL HISTORY Diagnosis Date NEGATIVE MEDICAL HISTORY PAST SURGICAL HISTORY Procedure Laterality Date NONE ALLERGIES Augmentin [Amoxicillin-Pot Clavulanate] MEDICATIONS No prescriptions on file. FAMILY HISTORY Problem Relation Age of Onset other (Negative Family History) Other Social History Tobacco Use Smoking status: Never Smokeless tobacco: Never Substance Use Topics Alcohol use: No Drug use: No Review of Systems Constitutional: Negative for chills and fever. HENT: Negative for congestion and sore throat. Respiratory: Negative for cough and shortness of breath. Gastrointestinal: Negative for abdominal pain, diarrhea and vomiting. Genitourinary: Positive for dysuria and penile discharge. Negative for frequency, penile pain, penile swelling and urgency. Objective BP 118/66 Pulse 70 Temp 36.1 ?C (96.9 ?F) Resp 16 Wt 104.6 kg (230 lb 9.6 oz) SpO2 97% Physical Exam Vitals and nursing note reviewed. Constitutional: General: He is not in acute distress. Appearance: Normal appearance. He is not toxic-appearing. HENT: Nose: Nose normal. Mouth/Throat: Mouth: Mucous membranes are moist. Eyes: Conjunctiva/sclera: Conjunctivae normal. Cardiovascular: Rate and Rhythm: Normal rate and regular rhythm. Pulmonary: Effort: Pulmonary effort is normal. Breath sounds: Normal breath sounds. Abdominal: General: Abdomen is flat. Palpations: Abdomen is soft. Tenderness: There is no abdominal tenderness. There is no right CVA tenderness, left CVA tenderness, guarding or rebound. Genitourinary: Comments: deferred Skin: General: Skin is warm and dry. Neurological: Mental Status: He is alert. Assessment and Plan ASSESSMENT/PLAN: 1. Pain with urination - ICD9: 788.1, ICD10: R30.9 (primary diagnosis) -UA reveals trace leukocytes. Will send urine for culture. STD testing pending. - UA DIP, URINE (POC) - BACTERIAL CULTURE, URINE - GONORRHEA/CHLAMYDIA NAAT - TRICHOMONAS VAGINALIS NAAT 2. Screening for STD (sexually transmitted disease) - ICD9: V74.5, ICD10: Z11.3 - GONORRHEA/CHLAMYDIA NAAT - TRICHOMONAS VAGINALIS NAAT -Declines blood testing for HIV/syphilis/hepatit is Diagnosis and treatment plan were discussed and questions were answered to the patient's satisfaction. Pt acknowledged understanding of concepts and follow up plan. Specific signs and symptoms that would indicate the need for higher level of care were discussed in detail warranting prompt ER evaluation. PETER Maldonado Allergies As of Date: 06/24/2024 Noted Allergy Reaction AUGMENTIN (AMOXICILLIN-POT CLAVUL*2012 6 - Diarrhea Date Reviewed: 10/23/2019 Reviewed by: Kylee German (Cart Driver) - Fully Assessed Reason for Visit: Urinary Problem [252] Cmt: pain, discharge x 3 days Primary Visit Diagnosis:Pain with urination [R30.9] Other Visit Diagnosis:Screening for STD (sexually transmitted disease) [Z11.3] Order(s):UA DIP, URINE (POC) [7999140] Order #: [id number]. #:[id number] BACTERIAL CULTURE, URINE [SQURCUL] Order #: [id number]. #:[id number] GONORRHEA/CHLAMYDIA NAAT [SQGCCT] Order #: [id number]. #:[id number] TRICHOMONAS VAGINALIS NAAT [SQTRVAMP] Order #: [id number] FUTURE TRICHOMONAS VAGINALIS NAAT [SQTRVAMP] Order #: [id number]. #:[id number] Problem List As Of Date 06/24/2024 Noted Resolved CONSTIPATION [564.0] 12/29/2001 12/24/2002 Encounter Status:Closed by PALOMA FLORES on 06/24/24 Normal [facility] TRICHOMONAS VAGINALIS NAATon 06-24-2024 T. vaginalis DNA ELDER+probe Ql (Unsp spec) Not detected Normal Not detected [facility] Comment on above: Order Comment: Speci men Type: URINE SPECIMEN Ordering Facility: [facility] Address: [address] [place] [address] Performed By: #### T RVAMP, 66088-0 #### [facility] CLIA [id number] [address] [place] [place] [address] [place] UA DIP, URINE (POC)on 2024 BILIRUBIN UA (POCT) Negative Negative [facility] CLARITY UA (POCT) Cloudy [facility] COLOR UA (POCT) Dark yellow [facility] GLUCOSE UA (POCT) Negative Negative mg/dL [facility] Hemoglobin Ql (U) Negative Negative [facility] Interpretation and review of laboratory results Abnormal [facility] KETONE UA (POCT) Negative Negative mg/dL [facility] LEUKOCYTES UA (POCT) Small Abnormal Negative [facility] NITRITE UA (POCT) Negative Negative [facility] PH UA (POCT) 5.5 4.5 - 8.0 [facility] Protein Ql (U) Negative Negative mg/dL [facility] SPECIFIC GRAVITY UA (POCT) 1.025 1.005 - 1.030 [facility] UROBILINOGEN UA (POCT) 0.2 Normal E.U./dL [facility] Location:[address], [place], [address] [facility] POINT OF CARE [facility] Internal Medicine Office Vis [email or web address] 08-08-2022 Internal Medicine Office Visit [facility] [address] [place] [address] [address] [place] [address] OFFICE VISIT Date of Service: 08/08/22 MR#: [id number] Acct: [id number] Name: BENNIE GARCIA Rep #: [id number] : 1995 Provider: Dr. Mike jones MD Age/Sex: 26/M Location: [facility] Status: Signed Intake Vital Signs 08/08/22 08:24 Height 6 ft 2 in Weight: 236 lb 4 oz BMI 30.3 BP 108/64 Blood Pressure Location Rt brachial Position Sitting Respiration 18 Pulse 88 Pulse Source Monitor Temp 95.0 F L Temp Source Temporal Pulse Oximetry (%) 96 Oxygen Delivery Method room air Intake Visit Reasons: 6 WK FU Chief Complaint: follow up back pain/Bp Is patient in pain?: Yes (right side upper back) Pain scale (1-10): 1 Allergies amoxicillin trihydrate [From Augmentin] Allergy (Verified 08/08/22 08:21) Rash potassium clavulanate [From Augmentin] Allergy (Verified 08/08/22 08:21) Rash Medications hydrocortisone 2.5 % topical cream 1 applic topical BID PRN rash #30 grams 05/23/21 [Rx Confirmed 08/08/22] cyclobenzaprine 10 mg tablet 10 mg PO TID PRN Muscle Spasm #20 TABLETS 06/26/22 [Rx Confirmed 08/08/22] naproxen 500 mg tablet (Naprosyn) 500 mg PO BID PRN pain #20 tabs 06/26/22 [Rx Confirmed 08/08/22] Nurse's Note: room 1 [facility] Medical History Back pain Dermatitis Groin swelling Hypertension Migraines Pain in toe of left foot Family History Grandfather Myocardial infarction, Onset Age: 40 Diabetes Heart disease Social History Smoking Status: Current every day smoker tobacco type: e-cigarettes Electronic Cigarette Use: with nicotine alcohol intake: never substance use type: does not use what type of physical activity do you participate in: running and weight training frequency: daily HPI HPI Chief Complaint: follow up back pain/Bp Details: BENNIE GARCIA, is a 26 M who presents to the office today for follow-up. No acute concerns at this time. History of chronically elevated blood pressure, blood pressure today at 108/64. Repeat with similar readings. He states that he has not really made any significant changes but has continued to exercise. Also currently in physical therapy for back pain, has found physical therapy very helpful. He is back to work. He would like to continue physical therapy because he states that it has helped the most. ROS Const Constitutional: No body ache, chills, excessive sweating, fatigue, fever(s), frequent falls, headache(s), snoring, weakness, sleep problems or change in appetite Eyes Eyes: No blurry vision, change in vision, discharge, dry eyes, floaters, eye pain or Light sensitivity ENT ENT: No abnormal hearing, ear or mastoid pain, tinnitus, nasal congestion, nasal discharge, post nasal drip, headache(s), neck pain or sore throat Resp Respiratory: No cough, excessive phlegm production, pain on inspiration, shortness of breath, snoring or wheezing Cardio Cardiology: No chest pain at rest, chest pain with exertion, excessive sweating, shortness of breath, dyspnea on exertion, lightheadedness, orthopnea or palpitations Gastro GI: No abdominal pain, change in bowel habits, constipation, cramping, diarrhea, Vomiting blood/hematemesis or vomiting Genitourinary Male: No burning urination, painful urination, urinary incontinence or blood in urine Musc Musculoskeletal: No abnormal gait, joint pain, back pain (upper right back discomfort), limited range of motion, neck pain, numbness or tingling Skin Skin: No dry skin, redness, excessive hair growth, yellowing of the eye, lesions, itchy eyes, rash or wounds Breast Breast: No change in breast shape, breast lump, breast pain, breast skin changes, breast swelling or nipple discharge Neuro Neurology: No abnormal gait, abnormal hearing, weakness, frequent falls, headache(s), numbness or tingling Psych Psychiatric: No anxiety, No change in appetite, No depression and No Thoughts of harming yourself/Others Endo Endocrine: No excessive sweating, fatigue, flushing, heat intolerance, increased thirst/drinking or increased hunger Aller/Imm Allergy/Immunologic: No itchy eyes, seasonal allergy symptoms, hives or wheezing Trev/Lymp Hematologic/Lymphati c: No easy bleeding, easy bruising or enlarged lymph nodes Exam Const General: cooperative, comfortable and no acute distress Orientation: alert, awake and oriented x3 HENMT Head: normal to inspection, normocephalic and atraumatic Ears: hearing grossly normal bilaterally Neck Neck: normal visual inspection, full ROM, no lymphadenopathy and supple Neck mass: No Thyroid: thyroid normal Resp Effort Inspection: normal respiratory effort and abl (more content not included)... Normal [facility] Re-Evaluation - PT (1)on Re-Evaluation - PT (1) [facility] Physical Therapy [facility] [address] [place] [address] / REEVALUATION / MEDICARE RECERTIFICATION PHYSICAL THERAPY MR#: [id number] Acct: [id number] Name: BENNIE GARCIA Rep #: [id number] : 1995 26 From: Ethel Hyde PT, Cert. MDT Referring Dr.: Dr. Mike Minaya MD Status:REG RC R Insurance: [facility] SELF PAY INSURANCE Dr. Mike Minaya MD, It has been my pleasure to treat BENNIE GARCIA over the last 8 visits for DORSALGIA AND R ARM STRAIN. Please see the progress note below for an update on the physical therapy plan of care! Subjective: PATIENT REPORTS HIS PAIN IS INTERMITTENT NOW. R NECK PAIN RANGING 0-3/10. GETTING BETTER. DOING HEP. FEELS READY TO GO BACK TO WORK AND STATES HE GOT A WORK RELEASE FROM DR. MINAYA. WANTS TO CONTINUE PT TO SEE IF HE CAN COMPLETELY GET RID OF THE PAIN AND BECAUSE TRACTION IS HELPING. Objective/Function: PATIENT WAS SEEN TODAY FOR RE-ASSESSMENT OF PROGRESS TOWARD THE SET PT GOALS AND THE NEED FOR FURTHER PHYSICAL THERAPY VS READINESS FOR DISCHARGE. PATIENT IS MAKING GOOD PROGRESS TOWARD ALL PT GOALS WITH TX AND EX. HE IS A GOOD CANDIDATE TO CONTINUE PT BASED ON PROGRESS MADE AND ROOM FOR FURHTER IMRPOVEMENT. PATIENT IS AGREEABLE. UPON EXAM TODAY: SRINI FIBERLINE SUPERVISOR STRENGTH 110 LBS. CERVICAL ROM WFL ALL PLANES BUT C/O MILD PAIN WITH R ROTATION TESTING. SRINI UE ROM AND STRENGTH WFL. Plan Plan: CONTINUE PT 2X'S A WK X 3-4 WKS. POSTURE CORRECTION/STRENGTHE RONI, INSTRUCTION IN APPROPRIATE BODY MECHANICS AND ACTIVITY MODIFICATIONS. SRINI UE ROM, STRETCHING AND STRENGTHENING. HEP INSTRUCTION. MODALITIES NEEDED. Balance/Gait/Functio nal tests - Balance/Special Test Scores Oswestry Neck Score: 4 Goals Goal 1:: DECREASE C/O NECK, UPPER BACK AND R UE SX'S. Goal Time Frame: 4-6 Weeks Goal Progress: Progressing Goal 2:: IMPROVE PERSONAL CARE, LIFTING, READING, SLEEP, WORK, DRIVING AND RECREATIONAL FUNCTION Goal Time Frame: 4-6 Weeks Goal Progress: Progressing Goal 3:: INSTRUCT IN PROPHYLAXIS Goal Time Frame: 4-6 Weeks Goal Progress: Progressing Anticipated Interventions Patient/Client Instruction: Educate patient on: Condition, Plan of Care, Risk Factors For the Purpose of:: To improve self management Therapeutic Exercise to Include: Strength training, Body mechanics, Postural training, Flexibilty training, Neuromotor development, Scapular Strength/Stabilizati on For the Purpose of:: To decrease pain, To increase ROM, To improve muscle performance and motor function, To increase tolerance to activity/condition/p osition, To improve ability of physical actions for home/community/work/ leisure TENS: Yes IF ES: Yes Cryotherapy (ice pack, ice massage): Yes Thermo therapy (hot pack): Yes Ultrasound (thermal/non thermal): Yes For the Purpose of:: To decrease pain, To improve nutrient delivery to tissue Please do not hesitate to contact me at [phone] by phone or if you have questions or concerns regarding this new plan of care! Sincerely, Ethel Hyde, PT, Cert MDT 08/03/22 [id number] CC: Dr. Mike Minaya MD CAROL ANN Signed For Medicare only, by signing this I certify the plan of care. Physicians Signature Date Normal [facility] Inital Evaluation (1) - PTon 07-05-2022 Inital Evaluation (1) - PT [facility] [address] [place] [address] / REHABILITATION SERVICES INITIAL EVALUATION MR#: [id number] Acct: [id number] Name: BENNIE GARCIA Rep #: [id number] : 1995 26 From: Ethel Hyde PT, Cert. MDT Referring Dr.: Dr. Mike Minaya MD Status: REG RCR Insurance: [facility] SELF PAY INSURANCE Patient's Visit Information BENNIE GARCIA is a 26 year old M referred to Physical Therapy by Dr. Mike Minaya MD with a diagnosis of DORSALGIA AND R ARM STRAIN. Date of Evaluation: 07/04/22 Physical Therapist: Ethel Hyde, PT, Cert MDT - Visit Plan Frequency: 2-3x /Week Duration: 4-6 Weeks Plan: TEST CERVICAL TRACTION/DISTRACTION . POSTURE CORRECTION/STRENGTHE RONI, INSTRUCTION IN APPROPRIATE BODY MECHANICS AND ACTIVITY MODIFICATIONS. SRINI UE ROM, STRETCHING AND STRENGTHENING. HEP INSTRUCTION. MODALITIES NEEDED. 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 MINAYA. TENTATIVE RTW DATE UNKNOWN. 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 Disability: NO. Present symptoms: R NECK/SHLD BLADE/UPPER BACK PAIN. DENIES ANY OTHER UE SX'S. Present since: APROX 3 MONTHS. Pain Scale: Worst - 6/10 Least - 4/10. Currently: 4/10. 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 He had tightness in that area with some radiation towards his neck. He was at the gym 06/25/22 when punching a punching bag he felt that same popping sensation. Next morning he woke up and has neck stiffness and difficulty moving neck. Worse: putting shirt/sweatshirt on, any position in lying other than flat on back, turning head right and left, looking down, looking up, sitting at computer, trying to ride motorcycle - can't. Better: medication but hasn't taken it for the past few days due to wanting to see how he does without it. warm showers. looking straight ahead. Disturbed sleep: yes. Previous history/Previous treatment: PHYSICAL THERPAY 2013 AGE 17 FOR R NECK PAIN S/P FOOTBALL INJURY - NEVER COMPLETELY RESOLVED. This episode: Naprosyn and Flexeril. Dizziness: no. Tinnitis: no. Nausea: no. Shortness of Breath: no. Difficulty Swollowing: no. Gait: PACE AND DISTANCE LIMITED DUE TO NECK PAIN. Accidents: NO. Unexplained weight loss: NO. Imaging: RECENT NECK X-RAY 06/26/22: IMPRESSION: Straightening of the normal cervical lordosis. . PMH/Recent major surgery: UNREMARKABLE. - Objective Sitting Posture/Standing Posture: FAIR. FH. RSH'S. NO TORTICOLLIS. Other Observations: INDEP GAIT AND TRANSFERS. Sensory deficit: SRINI UE LIGHT TOUCH SENSATION GROSSLY INTACT AND SYMMETRICAL. ROM deficit: SRINI UE ROM WFL BUT C/O RIGHT UT AREA PAIN AT THE END OF THE AVAILABLE R SHLD ALL PLANES. Motor deficit: SRINI UE STRENGTH GROSSLY 5/5 WITH MMT'ING. RIGHT HAND DOMINANT WITH A R FIBERLINE SUPERVISOR STRENGTH OF 60 LBS AND LEFT 100 LBS. Reflexes: SRINI UE DTR'S 2/3. Dural Signs: POSITIVE RIGHT UE. Cervical Mvmt Loss: Flex: MIN. Pro: NIL. Ext: MIN. Ret: MIN. RSB: MOD. LSB: MIN. R Rot: MIN. L Rot: MIN. PATIENT C/O INCREASED R NECK AND SHLD BLADE PAIN WITH CERVICAL ROM TESTING ALL PLANES. Postural strength: FAIR. Palpation: RIGHT UPPER TRAP TENDERNESS. TREATMENT: NEUROMUSCULAR REEDUCATION - RETRAINING OF MVMT AND POSTURE FOR SITTING, LYING AND STANDING ACTIVITIES. - Balance/Special Test Scores Oswestry Neck Score: 15 - Goals Goal 1:: DECREASE C/O NECK, UPPER BACK AND R UE SX'S. Goal Time Frame: 4-6 Weeks Goal 2:: IMPROVE PERSONAL CARE, LIFTING, READING, SLEEP, WORK, DRIVING AND RECREATIONAL FUNCTION Goal Time Frame: 4-6 Weeks Goal 3:: INSTRUCT IN PROPHYLAXIS Goal Time Frame: 4-6 Weeks - Anticipated Interventions Patient/Client Instruction: Educate patient on: Condition, Plan of Care, Risk Factors For the Purpose of:: To improve self management Therapeutic Exercise to Include: Strength training, Body mechanics, Postural training, Flexibilty training, Neuromotor development, Scapular Strength/Stabilizati on For the Purpose of:: To decrease pain, To increase ROM, To improve muscle performance and motor function, To increase tolerance to activity/condition/p osition, To improve ability of physical actions for home/community/work/ leisure TENS: Yes IF ES: Yes Cryotherapy (ice pack, ice massage): Yes Thermo therapy (hot pack): Yes Ultrasound (thermal/non thermal): Yes For the Purpose of:: To decrease pain, To improve nutrient delivery to tissue Thank you for the opportunity to evaluate your patient. For Medicare and Medicare HMO plans, please review the plan of care and approve it. It will need to be FAXED BACK to us at [phone] for Medicare purposes. For Medicare only, by signing this I certify the plan of car (more content not included)... Normal [facility] Internal Medicine Office Vis itoneeta 06-28-2022 Internal Medicine Office Visit [id number] [place] [address] OFFICE VISIT Date of Service: 06/28/22 MR#: [id number] Acct: [id number] Name: BENNIE GARCIA Rep #: [id number] : 1995 Provider: Dr. Mike jones MD Age/Sex: 26/M Location: [facility] Status: Signed with Addenda ADDENDUM by Dr. Mike Minaya MD on 07/02/22 at 1658 HPI Details: BENNIE GARCIA, is a 26 M who presents to the office today for Assessment and Plan Assessment and Plan (1) Hypertension: Status: Chronic (2) Back pain: Status: Acute Plan: Patient called back and stated that he would like to core dropper's Comp. and have this office mange his back pain which started aftera work-related injury. He was seen at the emergency room and had imaging done which was suggestive of possible muscle spasms. He has continued to have pain and tightness with no neuropathy/radiculop athy. Discussed several options which at that time he was advised to bring up with Worker's Comp. however, since he is not seeing Worker's Comp., recommend muscle relaxant and physical therapy. Will place referral. This note was generated with [employer] dictation software. It may contain incorrect words, spelling, and punctuation that were not noted in checking the note before signing. 07/02/22 1658 Date Mike Minaya MD cc: * Signed Intake Vital Signs 06/26/22 07:28 06/28/22 14:45 06/28/22 14:47 Height 6 ft 2 in 6 ft 2 in Weight: 229 lb BMI 29.4 BP 124/78 H 152/94 H 144/100 H Blood Pressure Location Lt brachial Lt brachial Position Sitting Respiration 16 18 Pulse 78 80 Pulse Source Monitor Temp 97.8 F 98.4 F Temp Source Temporal Temporal Pulse Oximetry (%) 98 97 Oxygen Delivery Method room air Intake Visit Reasons: ER FU - [facility] Chief Complaint: Hypertension. 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 Is patient in pain?: Yes (right scapula/right neck pain) Pain scale (1-10): 5 Allergies amoxicillin trihydrate [From Augmentin] Allergy (Verified 06/28/22 14:42) Rash potassium clavulanate [From Augmentin] Allergy (Verified 06/28/22 14:42) Rash Medications hydrocortisone 2.5 % topical cream 1 applic topical BID PRN rash #30 grams 05/23/21 [Rx Confirmed 06/28/22] cyclobenzaprine 10 mg tablet 10 mg PO TID PRN Muscle Spasm #20 TABLETS 06/26/22 [Rx Confirmed 06/28/22] naproxen 500 mg tablet (Naprosyn) 500 mg PO BID PRN pain #20 tabs 06/26/22 [Rx Confirmed 06/28/22] PFSH Medical History Dermatitis Groin swelling Hypertension Migraines Pain in toe of left foot Family History Grandfather Myocardial infarction, Onset Age: 40 Diabetes Heart disease Social History Smoking Status: Current every day smoker tobacco type: e-cigarettes Electronic Cigarette Use: with nicotine alcohol intake: never substance use type: does not use what type of physical activity do you participate in: running and weight training frequency: daily HPI HPI Chief Complaint: Hypertension. Details: BENNIE GARCIA, is a 26 M who presents to the office today for follow-up recent ER visit. Had presented to the emergency room due to back pain however, this is a condition managed by Worker's Comp. and so he was advised that this will have to be addressed by Worker's Comp., he voiced understanding. Blood pressure however noted to be elevated during this visit. Initial and repeat blood pressure significantly elevated. Blood pressure at 144/100 mmHg. He states that he has been a little more stressed and may have had a bit too much caffeine. Denies chest pain, palpitation or shortness of breath. He maintains that he stays active and exercises routinely. ROS Const Constitutional: No body ache, chills, excessive sweating, fatigue, fever(s), frequent falls, headache(s), snoring, weakness or change in appetite Eyes Eyes: No blurry vision, change in vision, vision loss, dry eyes, floaters, eye pain or Light sensitivity ENT ENT: No abnormal hearing, ear or mastoid pain, tinnitus, nasal congestion, sinus pain, nasal discharge, post nasal drip, headache(s), neck pain or sore throat Resp Respiratory: No cough, excessive phlegm production, pain on inspiration, shortness of breath, snoring or wheezing Cardio Cardiology: No chest pain at rest, chest pain with exertion, excessive sweating, dyspnea on exertion, lightheadedness, orthopnea or palpitations Gastro GI: No abdominal pain, change in bowel habits, constipation, cramping, diarrhea, nausea/dyspepsia or vomiting Genitourinary Male: No burning urination, painful urination, urinary incontinence, urinary frequency, suprapubic (more content not included)... Normal [facility] Cerv Spine 2 or 3 Viewson Cerv Spine 2 or 3 Views [facility] Imaging Services [address] [place] [address] Cerv Spine 2 or 3 Views MR#: [id number] Acct: [id number] Name: BENNIE GARCIA Rep #: [id number] : 1995 M 26 From: Luis Antonio flores MD PCP: Dr. Mike Minaya MD Status: REG ER Study: Cerv Spine 2 or 3 Views Date of Exam: 06/26/22 Exam# [id number] Ordering Dr: Lizeth Mckeon MD STUDY: X-RAY - CERVICAL SPINE REASON FOR EXAM: Male, 26 years old. 2 month history of right-sided neck pain. TECHNIQUE: 3 view(s) of the cervical spine were obtained. COMPARISON: None FINDINGS: Normal anterior atlantoaxial articulation. Normal odontoid process. There is straightening of the normal cervical lordosis. Normal vertebral bodies and endplates. Normal disc space heights. Normal visualized intervertebral neuroforamina. The soft tissue structures are unremarkable. RAD/Cerv Spine 2 or 3 Views IMPRESSION: Straightening of the normal cervical lordosis. Electronically Signed: Luis Antonio Cox MD at 8:45 EST , CC: Dr. Mike Minaya MD; Dr. Lizeth Mckeon MD Folding Machine Operator: Signed Normal [facility] Chest PA and Lateralon 06-26 Chest PA and Lateral [facility] Imaging Services [address] [place] [id number] Chest PA and Lateral MR#: [id number] Acct: [id number] Name: BENNIE GARCIA Rep #: [id number] : 1995 M 26 From: Luis Antonio flores MD PCP: Dr. Mike Minaya MD Status: REG ER Study: Chest PA and Lateral Date of Exam: 06/26/22 Exam# [id number] Ordering Dr: Lizeth Mckeon MD STUDY: X-RAY CHEST REASON FOR EXAM: Male, 26 years old. 2 month history of right shoulder pain. Work injury. TECHNIQUE: PA and lateral views of the chest. COMPARISON: None. FINDINGS: The lungs are clear and expanded. There is no demonstrated pleural abnormality. Normal size heart. Normal mediastinum and willy. Normal visualized pulmonary arteries. Normal visualized aortic arch and descending thoracic aorta. There is a dextroscoliosis of the thoracic spine. Normal visualized ribs, clavicles, and shoulders. There is no demonstrated abnormality of the visualized soft tissue structures of the upper abdomen. RAD/Chest PA and Lateral IMPRESSION: Dextroscoliosis. Electronically Signed: Luis Antonio Cox MD at 8:44 EST Reading Location ID and State: [address] [place] [address] , Service support , CC: Dr. Mike Minaya MD; Dr. Lizeth Mckeon MD Folding Machine Operator: Signed Normal [facility] Emergency Department Summary on 06-26-2022 Emergency Department Summary [facility] Medical Records Department [address] [place] [id number] Emergency Department Summary 06/26/22 MR#: [id number] Acct: [id number] Name: BENNIE GARCIA Rep #: [id number] : 1995 26 From: Lizeth Mckeon MD PCP: Dr. Mike Minaya MD Status:[facility] ER Location: ED HPI History of Present Illness Chief Complaint: Other, Pain/Inj Detail of Chief Complaint: Right upper back pain Informant: patient Narrative Narrative: Patient presents secondary to right upper back pain. 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 He had tightness in that area with some radiation towards his neck. Over the last 2 months with anti-inflammatories symptoms seem to improve. He was at the gym yesterday. When punching a punching bag he felt that same popping sensation. This morning he woke up and has neck stiffness and difficulty moving. Pain does not radiate down his arm. He has no paresthesias. [facility] Medical History Dermatitis Groin swelling Hypertension Migraines Pain in toe of left foot Home Medications hydrocortisone 2.5 % topical cream 1 applic topical BID PRN rash #30 grams 05/23/21 [Rx Last Taken Unknown] miconazole nitrate 2 % topical spray powder 1 spray topical BID #133 grams 05/23/21 [Rx Last Taken Unknown] cyclobenzaprine 10 mg tablet 10 mg PO TID PRN Muscle Spasm #20 TABLETS 06/26/22 [Rx Last Taken Unknown] naproxen 500 mg tablet (Naprosyn) 500 mg PO BID PRN pain #20 tabs 06/26/22 [Rx Last Taken Unknown] Allergy/AdvReac Type Severity Reaction Status Date / Time amoxicillin trihydrate Allergy Rash Verified 06/26/22 07:27 [From Augmentin] potassium clavulanate Allergy Rash Verified 06/26/22 07:27 [From Augmentin] Family History Grandfather Myocardial infarction, Onset Age: 40 Diabetes Heart disease Surgical History no surgical history Social History Smoking Status: Current every day smoker tobacco type: e-cigarettes Electronic Cigarette Use: with nicotine alcohol intake: never substance use type: does not use what type of physical activity do you participate in: running and weight training frequency: daily ROS ROS ED Constitutional Constitutional ED: Denies chills or fever(s) Eyes Eyes: Denies change in vision or discharge from eye(s) ENT ENT ED: Denies discharge from eye(s), rhinorrhea or sore throat Cardiovascular Cardiovascular: Denies chest pain or palpitations Respiratory/Chest Respiratory/Chest: Denies cough or dyspnea Gastrointestinal Gastrointestinal: Denies abdominal pain, nausea or vomiting Genitourinary Genitourinary ED: Denies difficulty urinating or dysuria Musculoskeletal Musculoskeletal: Reports back pain, extremity pain and neck pain Integumentary Denies Abrasions or rash Neurologic Neurologic: Denies headache(s) or weakness Allergic/Immunologic Allergic/Immunologic ED: Denies lip swelling or urticaria EXAM Physical Exam Const Vital Signs: 06/26/22 07:28 Temperature 97.8 F Temperature Source Temporal Pulse Rate 78 Respiratory Rate 16 Blood Pressure 124/78 H Blood Pressure Mean 93 Pulse Ox 98 Oxygen Delivery Method Room Air Positive well nourished and well developed General Appearance ED: well developed HEENT Reports normocephalic and head/scalp atraumatic Eyes PERRL and EOMs intact bilaterally Neck supple Chest Wall inspection of chest normal and palpation of chest normal Resp normal respiratory effort and clear to auscultation bilaterally Cardio regular rate and regular rhythm GI non-tender Auscultation: hypoactive bowel sounds Palpation: soft Back/Spine Back/Spine Narrative: Reproducible tenderness in the right upper thoracic paraspinal muscles and in the trapezius muscles. No bony tenderness. No midline cervical tenderness. Extremity normal to inspection Neuro oriented x3 and no sensory deficits noted Neuro Narrative: Decreased range of motion right shoulder secondary to pain. Sensorium / Orientation: alert Psych mental status grossly normal Skin no rashes or lesions noted MDM MDM MDM Narrative Medical decision making narrative: Patient was sent for cervical spine x-rays along with two-view chest x-ray. He was given Naprosyn and Flexeril. Radiography Diagnostic Testing: Clinical Impression(s) from Imaging Studies Cervical Spine X-Ray 06/26/22 07:41 IMPRESSION: Straightening of the normal cervical lordosis. Electronically Signed: Luis Antonio Cox MD at 8:45 EST Reading Location ID and (more content not included)... Normal [facility] Microbiology: Culture, Urine on 10-09-2016 GE use only - for [employer] import when terms are not otherwise specified Urine CultureCulture exhibits no growth. Invalid Interpretation Code [facility] Work Phone: Microbiology: (P) Culture, U rineon 10-08-2016 GE use only - for [employer] import when terms are not otherwise specified Urine CultureCulture exhibits no growth. Invalid Interpretation Code [facility] Work Phone: Lab Report: (P) Urinalysis, Completeon 10-06-2016 Nitrite Urine Negative Invalid Interpretation Code Negative [facility] Work Phone: Occult Blood, urine 10 High Negative [facility] Work Phone: specific gravity, urine 1.015 Invalid Interpretation Code 1.002-1.030 [facility] Work Phone: Urine, bilirubin presence Negative Invalid Interpretation Code Negative [facility] Work Phone: [phone] Urine, clarity Sl Cldy Invalid Interpretation Code Clear [facility] Work Phone: Urine, color YELLOW Invalid Interpretation Code Yellow [facility] Work Phone: Urine, glucose presence Normal mg/dl Invalid Interpretation Code Normal [facility] Work Phone: Urine, ketones presence Negative Invalid Interpretation Code Negative [facility] Work Phone: Urine, leukocyte esterase presence 500 High Negative [facility] Work Phone: Urine, pH 6.5 [pH] Invalid Interpretation Code 5.0 - 8.0 [facility] Work Phone: Urine, protein 15 mg/dL High Negative [facility] Work Phone: urobilinogen, urine, by dipstick Normal mg/dl Invalid Interpretation Code Normal [facility] Work Phone: Urine, bacteria in sediment 0 /[HPF] Invalid Interpretation Code None Seen [facility] Work Phone: Urine, epithelial cells in sediment 0 SEEN Invalid Interpretation Code 0-5 [facility] Work Phone: Urine, erythrocytes in sediment by volume 0 SEEN Invalid Interpretation Code 0-5 [facility] Work Phone: WBC (Leukocytes) 0 SEEN Invalid Interpretation Code 0-5 [facility] Work Phone: Lab Report: CT/NG [facility] BY PCR on 10-06-2016 Chlamydia trachomatis DNA [Presence] in Urine by Probe and target amplification method Negative Invalid Interpretation Code Negative [facility] Work Phone: Neisseria gonorrhoeae presence Negative Invalid Interpretation Code Negative [facility] Work Phone: Lab Report: Urinalysis, Comp leteon 10-06-2016 Urine, bacteria in sediment 1 /[HPF] Invalid Interpretation Code None Seen [employer] Work Phone: Urine, epithelial cells in sediment 0-5 SEEN Invalid Interpretation Code 0-5 [employer] Work Phone: [phone] Urine, erythrocytes in sediment by volume 0-5 SEEN Invalid Interpretation Code 0-5 [employer] Work Phone: [phone] Urine, mucus presence in sediment 0 SEEN Invalid Interpretation Code [facility] Work Phone: WBC (Leukocytes) 50-100 SEEN Invalid Interpretation Code 0-5 [employer] Work Phone: Office Visit: UC: alvarado when he uses the bathroomon 10-06-2016 Albumin Ql (U) Negative [facility] Work Phone: Appearance (U) clear Invalid Interpretation Code [facility] Work Phone: Bilirubin Ql (U) Negative [facility] Work Phone: blood in urine (hemoglobin) by dipstick Negative Invalid Interpretation Code [facility] Work Phone: Color (U) yellow [facility] Work Phone: Documentation of current medications (procedure) Done Invalid Interpretation Code [facility] Work Phone: Glucose Test strip (U) [Mass/Vol] Negative [facility] Work Phone: Ketones (U) [Mass/Vol] Negative [facility] Work Phone: Leukocyte esterase Test strip Ql (U) 3+ [facility] Work Phone: Nitrite Ql (U) Negative [facility] Work Phone: pH (U) 6.0 [pH] [facility] Work Phone: Specific gravity Refractometry (U) [Rel density] 1.010 [facility] Work Phone: Tobacco smoking status NHIS Never smoker [facility] Work Phone: Tobacco use HS Never smoker Invalid Interpretation Code [facility] Work Phone: Urine, glucose presence Negative Invalid Interpretation Code [facility] Work Phone: Urine, nitrite presence Negative Invalid Interpretation Code [facility] Work Phone: Urobilinogen Test strip Ql (U) Negative Invalid Interpretation Code [facility] Work Phone: Vital Signs Date Time Vital Sign Value Performing Clinician Facility 06-24-2024 12:57-0500 Body temperature 96.91 [degF] Krislyn Aberegg PA Work Phone: [facility] 06-24-2024 12:57-0500 Body weight 104.6 kg Krislyn Aberegg PA Work Phone: [facility] 06-24-2024 12:57-0500 Diastolic blood pressure 66 mm[Hg] Krislyn Aberegg PA Work Phone: [facility] 06-24-2024 12:57-0500 Heart rate 70 /min Krislyn Aberegg PA Work Phone: [facility] 06-24-2024 12:57-0500 Respiratory rate 16 /min Krislyn Aberegg PA Work Phone: [facility] 06-24-2024 12:57-0500 SaO2% (BldA) [Mass fraction] 97 % Krislyn Aberegg PA Work Phone: [facility] 06-24-2024 12:57-0500 Systolic blood pressure 118 mm[Hg] Krislyn Aberegg PA Work Phone: [facility] 08-08-2022 08:24-0400 Body height 187.[address] Mike Minaya Work Phone: [facility] 08-08-2022 08:24-0400 Body mass index (BMI) [Ratio] 30.3 kg/m2 Dr. Mike Minaya Work Phone: [facility] 08-08-2022 08:24-0400 Body temperature 95 [degF] Dr. Mike Minaya Work Phone: [facility] 08-08-2022 08:24-0400 Body weight 107.[address] Miek Minaya Work Phone: [facility] 08-08-2022 08:24-0400 Diastolic blood pressure 64 mm[Hg] Dr. Mike Minaya Work Phone: [facility] 08-08-2022 08:24-0400 Heart rate 88 /min Dr. Mike Minaya Work Phone: [facility] 08-08-2022 08:24-0400 Respiratory rate 18 /min Dr. Mike Minaya Work Phone: [facility] 08-08-2022 08:24-0400 SaO2% (BldA) [Mass fraction] 96 % Dr. Mike Minaya Work Phone: [facility] 08-08-2022 08:24-0400 Systolic blood pressure 108 mm[Hg] Dr. Mike Minaya Work Phone: [facility] 06-26-2022 08:00-0500 Body mass index (BMI) [Ratio] 30 kg/m2 [facility] 06-26-2022 08:00-0500 Body weight 106.3 kg [facility] 06-26-2022 07:28-0500 Body height 187.96 cm [facility] 06-26-2022 07:28-0500 Body temperature 97.8 [degF] [facility] 06-26-2022 07:28-0500 Diastolic blood pressure 78 mm[Hg] [facility] 06-26-2022 07:28-0500 Heart rate 78 /min [facility] 06-26-2022 07:28-0500 Respiratory rate 16 /min [facility] 06-26-2022 07:28-0500 SaO2% (BldA) [Mass fraction] 98 % [facility] 06-26-2022 07:28-0500 Systolic blood pressure 124 mm[Hg] [facility] 10-06-2016 11:35-0400 BMI (Body Mass Index) 35 kg/m2 Angela Lawrence LPN [facility] Work Phone: 10-06-2016 11:35-0400 Body Temperature 97.8 [degF] Angela Lawrence LPN [facility] Work Phone: 10-06-2016 11:35-0400 Body weight 113.85 kg Angela Lawrence LPN [facility] Work Phone: 10-06-2016 11:35-0400 BP Diastolic 76 mm[Hg] Angela Lawrence LPN [facility] Work Phone: 10-06-2016 11:35-0400 BP Systolic 124 mm[Hg] Angela Lawrence AGENCY APPOINTMENTS SUPERVISOR [facility] Work Phone: 10-06-2016 11:35-0400 Height 180.34 cm Angela Lawrence LPN [facility] Work Phone: 10-06-2016 11:35-0400 Pulse (Heart Rate) 82 /min Angela Lawrence LPN [facility] Work Phone: 10-06-2016 11:35-0400 Pulse Oximetry 99 % Angela Lawrence LPN [facility] Work Phone: 10-06-2016 11:35-0400 Respiratory Rate 16 /min Angela Lawrence LPN [facility] Work Phone: 10-06-2016 11:35-0400 Weight 113.85 kg Angela Lawrence LPN [facility] Work Phone: 06-26-2016 15:08-0500 BSA (Body Surface Area) 2.33 m2 Angela Lawrence LPN [facility] Work Phone: Encounters Encounter Date Encounter Type Care Provider Facility Start: 06-25-2024 End: 06-25-2024 Follow-up encounter Nedra Ornelas ADRY Work Phone: [facility] Start: 06-24-2024 End: 06-24-2024 Patient encounter procedure Paloma GREEN Work Phone: [facility] Comment on above: Pain with urination (Primary Dx); Screening for STD (sexually transmitted disease) Start: 06-24-2024 End: 06-24-2024 ambulatory [facility] Facility:[facility] Start: 08-15-2022 End: 08-15-[address] Mike Minaya Work Phone: [facility] Work Phone: Start: 08-15-2022 End: 08-15-[address] Mike Minaya Work Phone: [facility] Work Phone: Start: 08-08-2022 End: 08-08-2022 [facility] Start: 08-08-2022 End: 08-08-[address] Mike Minaya Work Phone: [facility] Work Phone: Start: 06-28-2022 End: [facility] Start: 06-26-2022 End: 06-26-2022 Emergency department patient visit [facility] Facility:[facility] Start: 06-26-2022 End: 06-26-2022 Emergency department patient visit [facility]Emergency Department Start: 12-29-2017 End: 12-29-2017 Emergency department patient visit PATIENT UNSURE PHYSICIAN Facility:A Procedures Date Procedure Procedure Detail Performing Clinician Start: 06-24-2024 Urnls dip stick/tabl et rgnt auto w/o microscopy Vladislav Parikh MD Work Phone: Start: 06-26-2022 Plain chest X-ray Start: 06-26-2022 X-ray of cervical spine Start: 10-06-2016 End: 10-06-2016 Documentation of current medications Angela Lawrence RODRIGO Start: 10-06-2016 End: 10-06-2016 Urinalysis Angela Lawrence RODRIGO Start: 10-06-2016 End: 10-06-2016 Ceftriaxone (Rocephin) per 250mg Jaren Long Marcelo [employer] PL[employer] WORKER[employer]C Start: 10-06-2016 End: 10-06-2016 Ther/proph/diag inj, sc/im Jaren Long Marcelo [employer] WORKER[employer]C Start: 10-06-2016 End: 10-06-2016 Urinalysis nonauto w/o scope Jaren Long Marcelo [employer] WORKER-C Plan of Treatment Date Care Activity Detail Author Start: 10-06-2025 Urine microalbumin profile DTaP,Tdap,Td Vaccine (8 - Td or Tdap) [facility] Start: 06-24-2024 End: 09-23-2024 TRICHOMONAS VAGINALIS NAAT TRICHOMONAS VAGINALIS NAAT Lab Routine Pain with urination Screening for STD (sexually transmitted disease) Expected: 06/24/2024, Expires: 09/23/2024 [facility] Comment on above: Expected: 06/24/2024 , Expires: 09/23/2024 Start: 01-05-2024 Covid-19 Vaccine ( season) Covid-19 Vaccine ( season) [facility] Start: 01-05-2024 Influenza vaccination Influenza Vacc ine (#1) [facility] Start: 10-07-2016 End: 10-07-2016 Urine culture, bacteria Urine Culture [facility] Work Phone: Start: 10-06-2016 End: 10-06-2016 Appointment Appointment [facility] Work Phone: Start: 10-06-2016 End: 10-06-2016 *GC/Chlamydia *GC/Chlamydia [facility] Work Phone: Start: 10-06-2016 End: 10-06-2016 Trichomonas vaginalis [Presence] in Unspecified specimen by Wet preparation *WP - Wet Prep - Trichomonas [facility] Work Phone: Start: 10-06-2016 End: 10-06-2016 Urinalysis complete panel - Urine *UAC- Urinalysis, Complete w/ Micro [facility] Work Phone: Start: 12-24-2015 Anxiety Screening Anxiety Screening [facility] Start: 12-24-2015 Depression Screening Depression Scre ening [facility] Start: 12-24-2015 Hepatitis C screening Hepatitis C Sc reening [facility] Start: 12-24-2015 HIV screening HIV Screening [facility] Start: 12-24-2011 Peds To Adult Transition Annual Assessment Peds To Adult Transition Annual Assessment [facility] Start: 2009 Peds To Adult Transition Initial Discussion Peds To Adult Transition Initial Discussion [facility] Bacteria identified in Urine by Culture BACTERIAL CULTURE, URINE Microbiology Routine Pain with urination Ordered: 06/24/2024 [facility] Work Phone: Comment on above: Ordered: 06/24/2024 Chlamydia trachomatis+Neisseria gonorrhoeae DNA [Presence] in Unspecified specimen by ELDER with probe detection GONORRHEA/CHLAMYDIA NAAT Lab Routine Pain with urination Screening for STD (sexually transmitted disease) Ordered: 06/24/2024 [facility] Comment on above: Ordered: 06/24/2024 Patient Education [facility] Work Phone: Patient referral [facility] Work Phone: Immunizations Immunization Date Immunization Notes Care Provider José sánchez 02-27-2022 influenza virus vaccine, unspecified formulation Krislyn Aberegg PA Work Phone: [facility] 03-21-2015 influenza, injectabl e, quadrivalent, contains preservative Krislyn Aberegg PA Work Phone: [facility] 03-19-2014 influenza, injectabl e, quadrivalent, preservative free Krislyn Aberegg PA Work Phone: [facility] 08-13-2013 human papilloma viru s vaccine, quadrivalent Krislyn Aberegg PA Work Phone: [facility] 03-24-2013 human papilloma viru s vaccine, quadrivalent Krislyn Aberegg PA Work Phone: [facility] 02-09-2013 human papilloma viru s vaccine, quadrivalent Krislyn Aberegg PA Work Phone: [facility] 02-09-2013 influenza virus vaccine, unspecified formulation Krislyn Aberegg PA Work Phone: [facility] 2012 Meningococcal, MCV4, unspecified conjugate formulation(groups A, C, Y and W-135) Krislyn Aberegg PA Work Phone: [facility] 2012 varicella virus vaccine Eulalio quinn Aberegg PA Work Phone: [facility] 10-18-2010 tetanus toxoid, redu tori diphtheria toxoid, and acellular pertussis vaccine, adsorbed Krislyn Aberegg PA Work Phone: [facility] Work Phone: 05-12-2009 novel [id number], all formulations Krislyn Aberegg PA Work Phone: [facility] 03-04-2009 influenza virus vaccine, unspecified formulation Krislyn Aberegg PA Work Phone: [facility] 03-03-2008 influenza virus vaccine, unspecified formulation Krislyn Aberegg PA Work Phone: [facility] 04-12-2003 influenza virus vaccine, unspecified formulation Krislyn Aberegg PA Work Phone: [facility] 03-05-2003 influenza virus vaccine, unspecified formulation Krislyn Aberegg PA Work Phone: [facility] 12-24-2002 diphtheria, tetanus toxoids and acellular pertussis vaccine Krislyn Aberegg PA Work Phone: [facility] 12-24-2002 measles, mumps and rubella virus vaccine Krislyn Aberegg PA Work Phone: [facility] 12-24-2002 poliovirus vaccine, inactivated Krislyn Aberegg PA Work Phone: [facility] 04-04-1999 diphtheria, tetanus toxoids and acellular pertussis vaccine Krislyn Aberegg PA Work Phone: [facility] 04-04-1999 haemophilus influenz ae type b vaccine, HbOC conjugate Krislyn Aberegg PA Work Phone: [facility] 04-04-1999 poliovirus vaccine, inactivated Krislyn Aberegg PA Work Phone: [facility] 12-27-1998 measles, mumps and rubella virus vaccine Krislyn Aberegg PA Work Phone: [facility] 12-27-1998 varicella virus vaccine Eulalio quinn Aberegg PA Work Phone: [facility] 09-23-1998 hepatitis B vaccine, pediatric or pediatric/adolescent dosage Krislyn Aberegg PA Work Phone: [facility] 07-08-1998 diphtheria, tetanus toxoids and acellular pertussis vaccine Krislyn Aberegg PA Work Phone: [facility] 07-08-1998 haemophilus influenz ae type b vaccine, HbOC conjugate Krislyn Aberegg PA Work Phone: [facility] 07-08-1998 rotavirus, live, pentavalent vaccine Krislyn Aberegg PA Work Phone: [facility] 04-25-1998 diphtheria, tetanus toxoids and acellular pertussis vaccine Krislyn Aberegg PA Work Phone: [facility] 04-25-1998 haemophilus influenz ae type b vaccine, HbOC conjugate Krislyn Aberegg PA Work Phone: [facility] 04-25-1998 hepatitis B vaccine, pediatric or pediatric/adolescent dosage Krislyn Aberegg PA Work Phone: [facility] 04-25-1998 poliovirus vaccine, inactivated Krislyn Aberegg PA Work Phone: [facility] 04-25-1998 rotavirus, live, pentavalent vaccine Krislyn Aberegg PA Work Phone: [facility] 02-23-1998 diphtheria, tetanus toxoids and acellular pertussis vaccine Paloma GREEN Work Phone: [facility] 02-23-1998 haemophilus influenz ae type b vaccine, HbOC conjugate Paloma GREEN Work Phone: [facility] 02-23-1998 hepatitis B vaccine, pediatric or pediatric/adolescent dosage Paloma GREEN Work Phone: [facility] 02-23-1998 poliovirus vaccine, inactivated Paloma GREEN Work Phone: [facility] 02-23-1998 rotavirus, live, pentavalent vaccine Paloma GREEN Work Phone: [facility] Payers Date Payer Category Payer Self-pay [id number] 2019 Private Health Insurance MMO [employer] PPO Member Subscriber Plan / Payer (Effective 2019-Present) Name: Bennie Garcia Relation to Subscriber: Self Name: Bennie Garcia Payer ID: Not on file Type: PPO Address: [place] [id number] 2019 Unknown [id number] 2017 Unknown [id number] 1995 Unknown [id number] Private Health Insurance [employer] [id number] Unknown SELF INS [facility] [id number] Unknown [id number] Unknown [id number] Unknown [id number] Unknown [id number] Social History Date Type Detail Facility Start: 06-26-2022 End: 08-08-2022 Tobacco smoking status DCIS Unknown if ever smoked [facility] Start: 10-05-[address] [facility] Start: 10-05-[address] [facility] Start: 1995 Sex Assigned At Male W [facility] Start: 09-02-2017 [facility] Start: 09-02-2017 Tobacco use and exposure Smokeless tobacco non-user [facility] Start: 10-23-2019 Alcoholic beverage intake Current non-drinker of alcohol (finding) [facility] Start: 10-23-2019 End: 04-12-2020 History of Social function [facility] Start: 10-23-2019 End: 04-12-2020 Tobacco use panel [facility] National Score (1-100), lower number is lower risk Not on file [facility] Start: 1995 Sex assigned at Not on file [facility] Functional Status Date Assessment Result Facility 07-28-2014 Are you deaf, or do you have serious difficulty hearing No 07/28/2014 4:36 PM Jessica Sosa RN No [facility] Work Phone: 07-28-2014 Are you blind, or do you have serious difficulty seeing, even when wearing glasses No 07/28/2014 4:36 PM Jessica Sosa RN No [facility] 07-28-2014 Do you have serious difficulty walking or climbing stairs No 07/28/2014 4:36 PM Jessica Sosa RN No [facility] 07-28-2014 Do you have difficul ty dressing or bathing No 07/28/2014 4:36 PM EDT Jessica Light RN No [facility] 07-28-2014 Because of a physica l, mental, or emotional condition, do you have difficulty doing errands alone such as visiting a physician's office or shopping No 07/28/2014 4:36 PM EDT Jessica Light RN No [facility] Mental Status Date Assessment Result Facility 07-28-2014 Because of a physica l, mental, or emotional condition, do you have serious difficulty concentrating, remembering, or making decisions No 07/28/2014 4:36 PM EDT Jessica Light RN No [facility] Telephone encounter Note 06-25-2024 Telephone Encounter - Nedra Ornelas APRN.WELDING MACHINE OPERATOR GAS - 06/25/2024 2:36 PM EST Note Date & Type Note Facility 06-25-2024 Telephone encount er Note Urine culture returns and negative Reached out and notified patient. He is also aware of POSITIVE chlamydia [facility] Note 06-25-2024 Telephone Encounter - Nedra Ornelas APRN.WELDING MACHINE OPERATOR [employer] - 06/25/2024 2:36 PM EST Note Date & Type Note Facility 06-25-2024 Miscellaneous Notes Formattin g of this note might be different from the original. Urine culture returns and negative Reached out and notified patient. He is also aware of POSITIVE chlamydia documented in this encounter [facility] Progress note 06-24-2024 Note Date & Type Note Facility 06-24-2024 Note HNO ID: [id number] Author: PALOMA FLORES PA Service: ? Author Type: Physician Box Stacker Type: Progress Notes Filed: 06/24/2024 13:08 Note Text: This note was created using MolecuLightriter. Subjective Bennie Garcia is a 28 year old male. HPI 28-year-old male presents for dysuria, penile discharge times a few days. Patient states he has having white penile discharge in the morning. He has a little bit of dysuria. No hematuria. No abdominal pain, testicular pain, back pain, fevers or vomiting. He states he had unprotected sex 3 weeks ago. No known exposure to any specific STD. States he had an STD in high school and this feels similar. He denies any rashes or lesions. No other complaint. PAST MEDICAL HISTORY Diagnosis Date NEGATIVE MEDICAL HISTORY PAST SURGICAL HISTORY Procedure Laterality Date NONE ALLERGIES Augmentin [Amoxicillin-Pot Clavulanate] MEDICATIONS No prescriptions on file. FAMILY HISTORY Problem Relation Age of Onset other (Negative Family History) Other Social History Tobacco Use Smoking status: Never Smokeless tobacco: Never Substance Use Topics Alcohol use: No Drug use: No Review of Systems Constitutional: Negative for chills and fever. HENT: Negative for congestion and sore throat. Respiratory: Negative for cough and shortness of breath. Gastrointestinal: Negative for abdominal pain, diarrhea and vomiting. Genitourinary: Positive for dysuria and penile discharge. Negative for frequency, penile pain, penile swelling and urgency. Objective BP 118/66 Pulse 70 Temp 36.1 ?C (96.9 ?F) Resp 16 Wt 104.6 kg (230 lb 9.6 oz) SpO2 97% Physical Exam Vitals and nursing note reviewed. Constitutional: General: He is not in acute distress. Appearance: Normal appearance. He is not toxic-appearing. HENT: Nose: Nose normal. Mouth/Throat: Mouth: Mucous membranes are moist. Eyes: Conjunctiva/sclera: Conjunctivae normal. Cardiovascular: Rate and Rhythm: Normal rate and regular rhythm. Pulmonary: Effort: Pulmonary effort is normal. Breath sounds: Normal breath sounds. Abdominal: General: Abdomen is flat. Palpations: Abdomen is soft. Tenderness: There is no abdominal tenderness. There is no right CVA tenderness, left CVA tenderness, guarding or rebound. Genitourinary: Comments: deferred Skin: General: Skin is warm and dry. Neurological: Mental Status: He is alert. Assessment and Plan ASSESSMENT/PLAN: 1. Pain with urination - ICD9: 788.1, ICD10: R30.9 (primary diagnosis) -UA reveals trace leukocytes. Will send urine for culture. STD testing pending. - UA DIP, URINE (POC) - BACTERIAL CULTURE, URINE - GONORRHEA/CHLAMYDIA NAAT - TRICHOMONAS VAGINALIS NAAT 2. Screening for STD (sexually transmitted disease) - ICD9: V74.5, ICD10: Z11.3 - GONORRHEA/CHLAMYDIA NAAT - TRICHOMONAS VAGINALIS NAAT -Declines blood testing for HIV/syphilis/hepatitis Diagnosis and treatment plan were discussed and questions were answered to the patient's satisfaction. Pt acknowledged understanding of concepts and follow up plan. Specific signs and symptoms that would indicate the need for higher level of care were discussed in detail warranting prompt ER evaluation. PETER Maldonado [facility] History of Present illness Narrative 06-24-2024 Paloma Flores PA - 06/24/2024 1:03 PM EST Note Date & Type Note Facility 06-24-2024 History of Presen t illness Narrative This note was created using OKKAM. Subjective Bennie Garcia is a 28 year old male. HPI 28-year-old male presents for dysuria, penile discharge times a few days. Patient states he has having white penile discharge in the morning. He has a little bit of dysuria. No hematuria. No abdominal pain, testicular pain, back pain, fevers or vomiting. He states he had unprotected sex 3 weeks ago. No known exposure to any specific STD. States he had an STD in high school and this feels similar. He denies any rashes or lesions. No other complaint. PAST MEDICAL HISTORY Diagnosis Date NEGATIVE MEDICAL HISTORY PAST SURGICAL HISTORY Procedure Laterality Date NONE ALLERGIES Augmentin [Amoxicillin-Pot Clavulanate] MEDICATIONS No prescriptions on file. FAMILY HISTORY Problem Relation Age of Onset other (Negative Family History) Other Social History Tobacco Use Smoking status: Never Smokeless tobacco: Never Substance Use Topics Alcohol use: No Drug use: No Review of Systems Constitutional: Negative for chills and fever. HENT: Negative for congestion and sore throat. Respiratory: Negative for cough and shortness of breath. Gastrointestinal: Negative for abdominal pain, diarrhea and vomiting. Genitourinary: Positive for dysuria and penile discharge. Negative for frequency, penile pain, penile swelling and urgency. Objective BP 118/66 Pulse 70 Temp 36.1 C (96.9 F) Resp 16 Wt 104.6 kg (230 lb 9.6 oz) SpO2 97% Physical Exam Vitals and nursing note reviewed. Constitutional: General: He is not in acute distress. Appearance: Normal appearance. He is not toxic-appearing. HENT: Nose: Nose normal. Mouth/Throat: Mouth: Mucous membranes are moist. Eyes: Conjunctiva/sclera: Conjunctivae normal. Cardiovascular: Rate and Rhythm: Normal rate and regular rhythm. Pulmonary: Effort: Pulmonary effort is normal. Breath sounds: Normal breath sounds. Abdominal: General: Abdomen is flat. Palpations: Abdomen is soft. Tenderness: There is no abdominal tenderness. There is no right CVA tenderness, left CVA tenderness, guarding or rebound. Genitourinary: Comments: deferred Skin: General: Skin is warm and dry. Neurological: Mental Status: He is alert. Assessment and Plan ASSESSMENT/PLAN: 1. Pain with urination - ICD9: 788.1, ICD10: R30.9 (primary diagnosis) -UA reveals trace leukocytes. Will send urine for culture. STD testing pending. - UA DIP, URINE (POC) - BACTERIAL CULTURE, URINE - GONORRHEA/CHLAMYDIA NAAT - TRICHOMONAS VAGINALIS NAAT 2. Screening for STD (sexually transmitted disease) - ICD9: V74.5, ICD10: Z11.3 - GONORRHEA/CHLAMYDIA NAAT - TRICHOMONAS VAGINALIS NAAT -Declines blood testing for HIV/syphilis/hepatitis Diagnosis and treatment plan were discussed and questions were answered to the patient's satisfaction. Pt acknowledged understanding of concepts and follow up plan. Specific signs and symptoms that would indicate the need for higher level of care were discussed in detail warranting prompt ER evaluation. PETER Maldonado documented in this encounter [facility] Discharge summary 10-29-2022 Note Date & Type Note Facility 10-29-2022 Discharge summary Note Date/Time October 29, 2022 6:57pm [facility] [address] [place] [address]. [address] [place] [address] / REHABILITATION SERVICES DISCHARGE SUMMARY MR#: [id number] Acct: [id number] Name: BENNIE GARCIA Rep #: [id number] : 1995 26 From: Cert. JESUS Khan PTT Referring Dr.: Dr. Mike Minaya MD Status : REG RCR Insurance: [facility] SELF PAY INSURANCE BENNIE GARCIA was seen in my office for initial evaluation on 07/04/22. The following Plan of Care was established for this patient: Initial Frequency: 2-3x /Week Initial Duration: 4-6 Weeks Patient/Client Instruction: Educate patient on: Condition, Plan of Care, Risk Factors For the Purpose of:: To improve self management Therapeutic Exercise to Include: Strength training, Body mechanics, Postural training, Flexibilty training, Neuromotor development, Scapular Strength/Stabilization For the Purpose of:: To decrease pain, To increase ROM, To improve muscle performance and motor function, To increase tolerance to activity/condition/position, To improve ability of physical actions for home/community/work/leisure TENS: Yes IF ES: Yes Cryotherapy (ice pack, ice massage): Yes Thermo therapy (hot pack): Yes Ultrasound (thermal/non thermal): Yes For the Purpose of:: To decrease pain, To improve nutrient delivery to tissue This patient was last seen in our office 08/15/22. Pertinent comments regardingtheir Physical therapy will appear below: This patient has not returned to Physical Therapy and is appropriate to return to MD for further follow-up as needed. At this point I will be discontinuing this patient from physical therapy. I would be happy to see this patient again in the future if found appropriate by the physician. Thank you! Ethel Hyde PT, Cert MDT Balance/Gait/Functional tests - Balance/Special Test Scores Oswestry Neck Score: 4 <Electronically signed by Richi Khan PT. T> 10/29/22 2054 CC: Dr. Mike Minaya MD ~ CAROL ANN Signed [facility] Work Phone: Evaluation note Note Date & Type Note Facility Evaluation note No assessment information availa ble [facility] Work Phone: Evaluation note Note Date & Type Note Facility Evaluation note Diagnosis Onset Date Back pain chronic Hypertension chronic [facility] Work Phone: Evaluation note Note Date & Type Note Facility Evaluation note Diagnosis Pain with urination- Primary Renal colic Screening for STD (sexually transmitted disease) Screening examination for venereal disease documented in this encounter [facility] Summary Purpose Family History Relationship Condition Age at Onset Recorded Date/T lizbeth grandfather Myocardial infarction 40 Diabetes mellitus Unknown Cardiac disease Unknown Advance Directives Advance Directive Response Recorded Date/ Time Living Will No June 26, 023 7:56am Power of Fur Farmer No June 26, 2022 7:56am Advance Directive Response Recorded Date/ Time Living Will No June 26, 023 8:56am Power of Fur Farmer No June 26, 2022 8:56am Chief Complaint and Reason for Visit Chief Complaint neck pain Chief Complaint 6 WK FU BACK PAIN MUSCLE SPASM / RX HERE Reason for Visit Back pain Hypertension Additional Source Comments (unrecognized sect ion and content) No Status Records FoundNo Status Records FoundNo Status Records Found INFORMATION SOURCE (unrecogn ized section and content) DATE CREATED AUTHOR 05/05/2018 [facility] ([place]) DATE CREATED AUTHOR AUTHOR'S ORGANIZ ATION 11/01/2022 [facility] DATE CREATED AUTHOR AUTHOR'S ORGANIZ ATION 06/26/2024 [facility] Care Teams (unrecognized sec tion and content) Team Status: Active Member Role Status Dates No Primary Care Physician Family Provider Active Dr. Mike Minaya MD Primary Care Provider Active Team Status: Inactive Member Role Status Dates Dr. Mike Minaya MD Primary Care Provider Active Dr. Lizeth Mckeon MD Emergency Provider Active Team Status: Inactive Member Role Status Dates Dr. Mike Minaya MD Primary Care P lavell, Attending Provider, Referring Provider Active Team Status: Inactive Member Role Status Dates Dr. Mike Minaya MD Primary Care Provider, Atten ding Provider Active Referral Management Liaison Relationship Specialty Start Date End Date Keena Lucio MD [address] [place], [place] [id number] PCP - General Pediatrics 10/27/12 Referral Management Liaison Relationship Specialty Start Date End Date Keena Lucio MD [address] [place], [place] [id number] PCP - General Pediatrics 10/27/12 Goals (unrecognized section and content) Goals may be documented in a n alternate sectionGoals may be documented in an alternate section Source Comments (unrecognize d section and content) In the event this informatio n is protected by the Federal Confidentiality of Alcohol and Drug Abuse Patient Records regulations: The Federal rules restrict any use of the information to criminally investigate or prosecute any alcohol or drug abuse [facility] event this information is protected by the Federal Confidentiality of Alcohol and Drug Abuse Patient Records regulations: The Federal rules restrict any use of the information to criminally investigate or prosecute any alcohol or drug abuse patient.[facility] Reason for Visit (unrecogniz ed section and content) Reason Comments Urinary Problem pain, discharge x 3 days FOR RECORDS PERTAINING TO PATIENTS WHO ARE OR HAVE BEEN ENROLLED IN A CHEMICAL DEPENDENCY/SUBSTANCEABUSE PROGRAM, SOME INFORMATION MAY BE OMITTED. This clinical summary was aggregated from multiple sources. Caution should be exercised in using it in the provision of clinical care. This summary normalizes information from multiple sources, and as a consequence, information in this document may materially change the coding, format and clinical context of patient data. In addition, data may be omitted in some cases. CLINICAL DECISIONS SHOULD BE BASED ON THE PRIMARY CLINICAL RECORDS. [employer] [facility]. provides no warranty or guarantee of the accuracy or completeness of information in this document.
[2024-12-25 20:47] VITALS: BP 101/88; PULSE 80; O2SAT 100
[2024-12-25 21:01] LABS: Color, Urine Yellow (Yellow); Glucose, Dipstick Normal (Normal); Ketone-Dipstick Negative (Negative); Leukocyte Esterase-Dipstick Negative /ul (Negative); Nitrite-Dipstick Negative (Negative); Occult Blood-Urine Negative /ul (Negative); Protein-Dipstick 30 mg/dl (Negative); Specific Gravity, Urine 1.025 (1.002-1.030)
[2024-12-25 21:02] LABS: Urine Bilirubin Dipstick 1 mg/dL (Negative)
[2024-12-25 21:37] LABS: Mucous, Urine 3+ /hpf (<or=2+); Squamous Epithelial Cells - UA 0-5 SEEN /hpf (0-5)
[2024-12-25 22:00] VITALS: BP 112/80; PULSE 80; O2SAT 100
[2024-12-25 22:15] VITALS: BP 112/80; PULSE 80; RESP 18; TEMP 36.8; O2SAT 100
== END 2024-12-25 22:16 | disposition home or self-care (01) ==
PROVIDERS: Emergency Provider Emergency Medicine; PCP Internal Medicine; Visit Provider Emergency Medicine
DX: N45.1 Epididymitis (principal); N50.82 Scrotal pain; I10 Essential (primary) hypertension; F17.290 Nicotine dependence, other tobacco product, uncomplicated
CPT/HCPCS: 80053; 81001; 83690; 85025; 87491; 87591; 96374; 99282; A4216

== ENCOUNTER → 2024-12-28 | Outpatient (CLI) | payer OTHER, SELFPAY ==
--- NOTE | 2024-12-28 13:25 | US_ITS ---
PROCEDURE: TESTICULAR WITH ARTERIAL FLOW 12/28/2024 REASON FOR EXAM: TESTICLE PAIN 4 day history of bilateral testicular pain. TECHNIQUE: Multiple views of both testicles were obtained. COMPARISON: None FINDINGS: RIGHT testicle: 5 cm x 3.6 cm x 2.7 cm Normal flow to the right testicle. Right epididymis: 0.4 cm x 1.1 cm 1.2 cm Increased flow to the right epididymis suggestive of possible epididymitis. LEFT testicle: 4.8 cm x 3.4 cm x 2.7 cm Normal flow to the left testicle. Left epididymis: 0.9 cm x 1.5 cm 1.3 cm Other findings: Small bilateral hydroceles. US/Testicular with Arterial Flow IMPRESSION: No evidence of testicular torsion. Findings suggestive of right epididymitis. Small bilateral hydroceles. Reading Location: [id number]
== END | disposition home or self-care (01) ==
LOC: US 13:24
PROVIDERS: PCP Internal Medicine; Referring Provider Nurse Practitioner Family; Visit Provider Nurse Practitioner Family
DX: N45.1 Epididymitis (principal)
CPT/HCPCS: 76870; 93976